=== PATIENT | female | born 1955 | race Caucasian/White ===

== ENCOUNTER 2021-12-08 08:20 | Inpatient (IN) | payer OTHER ==
[2021-12-08 08:49] LABS: Absolute Lymphocytes (CBC) 1.8 K/uL (0.7-4.9); Lymphocytes % 23.9 % (15.3-44.8); MCV 86.6 fL (80-100); MPV 8.6 fL (7.6-11.3); RBC Red Blood Cell Count 4.39 M/uL (3.86-4.86)
[2021-12-08] MEDS ORDERED: ONDANSETRON 4 MG/2 ML VIAL ONE ×2 (08:55→10:13)
[2021-12-08] MEDS ORDERED: FENTANYL CITR 100 MCG/2 ML ONE (08:55)
[2021-12-08] MEDS ORDERED: NA CHLORIDE 0.9% 1,000 ML ONE ×2 (08:55→11:25)
[2021-12-08 09:08] LABS: Albumin 3.6 g/dL (3.4-5.0); Bilirubin Total 0.6 mg/dL (0.2-1.0); Potassium 3.8 mmol/L (3.5-5.1); Protein, Total 7.3 g/dL (6.4-8.2)
--- NOTE | 2021-12-08 09:13 | RAD REPORT ---
EXAM DESCRIPTION: CT - Stone Protocol - 12/08/2021 9:03 am CLINICAL HISTORY: Flank pain. flankp ain COMPARISON: No comparisons TECHNIQUE: Axial images were obtained without oral or IV contrast. Lack of contrast limits solid org an and vascular assessment. The [id number] spans the entirety of the system partially obscuring uppermost abdomen and lung bases. Coronal reformatted images were obtained and reviewed. All CT scans are performed using dose optimization technique as appropriate and may include automated exposure control or mA/KV adjustment according to patient size. FINDINGS: Nonspecific interstitial thickening is seen in both lung bases. The liver contains a 13 mm low-density lesion in the anterior right lobe.No aggressive liver mass or biliary dilatation. The pancreas and adrenal glands are normal. No pathologic lymphadenopathy in the abdomen or pelvis. Multiple calculi are present in the right kidney largest in the right renal pelvis measuring 20 mm. N o right-sided hydronephrosis. There is mild to moderate left-sided hydronephrosis and hydroureter wit h a punctate stone seen distal left ureter measuring 1-2 mm. No bowel obstruction, free air, free fluid or abscess. Normal appendix noted. No significant bony abnormality. IMPRESSION: Punctate stone distal left ureter with [id number] left-sided hydronephrosis and hy droureter. Significant right-sided nephrolithiasis.
[2021-12-08] MEDS ORDERED: Magnesium Sulfate 2gm IVPB 2 G/50 ML BAG IV ONE (09:37)
[2021-12-08] MEDS ORDERED: KETOROLAC 30 MG/ML INJ ONE (09:37)
[2021-12-08] MEDS ORDERED: TAMSULOSIN 0.4 MG SR CAP ONE (09:37)
[2021-12-08] MEDS ORDERED: METOCLOPRAMIDE 10 MG/2mL INJ ONE (11:43)
[2021-12-08 11:55] LABS: Urine Blood 3+ (Negative); Urine Glucose Negative (Negative); Urine Protein 2+ (Negative); Urine Specific Gravity >=1.030 (1.005-1.030); Urine pH 5.5 (5.0-7.0)
[2021-12-08 13:01] LABS: Urine Bacteria <20 /HPF (<20); Urine Mucus 1+ /HPF (NONE SEEN)
--- NOTE | 2021-12-08 14:36 | RAD REPORT ---
EXAM DESCRIPTION: RAD - Chest Single View - 12/08/2021 2:10 pm CLINICAL HISTORY: DYSPNEA COMPARISON: No comparisons FINDINGS: Lines: None. Lungs: Diffuse coarsening of the pulmonary interstitium. Pleural: No significant pleural effusions or pneumothorax. Cardiac: Cardiomegaly. Bones: No acute fractures. Other: IMPRESSION: Findings most consistent with pulmonary edema. Pneumonia less likely but difficult to ex clude.
[2021-12-08 14:50] LABS: Arterial Blood Carboxyhemoglob 1.1 % (0-1.5); Blood Gas Oxyhemoglobin 85.2 % (94-97)
--- NOTE | 2021-12-08 15:16 | EDPHYS ---
Physician Documentation [facility] Name: Alix Acosta Age: 66 yrs Sex: Female : 1955 Arrival Date: 12/08/2021 Time: 08:23 Bed 18 Private MD: ED Physician David Mejia HPI: 12/08 09:09 This 66 yrs old Female presents to ER via Ambulatory with complaints of Flank Pain, kb Vomiting/Diarrhea. 09:09 The patient complains of pain in the left flank. The pain does not radiate. Onset: The kb symptoms/episode began/occurred this morning. Modifying factors: The symptoms are alleviated by nothing. the symptoms are aggravated by nothing. Associated signs and symptoms: Pertinent positives: diarrhea, nausea, vomiting, Pertinent negatives: fever. Severity of pain: At its worst the pain was severe in the emergency department the pain is unchanged. The patient has not experienced similar symptoms in the past. The patient has not recently seen a physician. Pt reports sudden onset of severe left flank pain that started this morning. reports n/v, with slight diarrhea as well. 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 - Social history:: Smoking status: Patient denies any tobacco usage or history of. ROS: 09:09 Constitutional: Negative for fever, chills, and weight loss. kb 09:09 Abdomen/GI: Positive for nausea, vomiting, and diarrhea, Negative for abdominal pain. 09:09 Back: Positive for flank pain, on the left. 09:09 All other systems are negative. Exam: 09:09 Constitutional: This is a well developed, well nourished patient who is awake, alert, kb and in no acute distress. Head/Face: Normocephalic, atraumatic. ENT: Moist Mucous membranes Cardiovascular: Regular rate and rhythm with a normal S1 and S2. No gallops, murmurs, or rubs. No pulse deficits. Respiratory: Respirations even and unlabored. No increased work of breathing. Talking in full sentences Abdomen/GI: Soft, non-tender. No distention Skin: Warm, dry with normal turgor. Normal color. MS/ Extremity: Pulses equal, no cyanosis. Neurovascular intact. Full, normal range of motion. Neuro: Awake and alert, GCS 15, oriented to person, place, time, and situation. Moves all extremities. Normal gait. Psych: Awake, alert, with orientation to person, place and time. Behavior, mood, and affect are within normal limits. 09:09 Back: CVA tenderness, that is moderate, that is severe, is noted on the left. Vital Signs: 08:31 BP 132 / 94; Pulse 97; Resp 16; Temp 98.8; Pulse Ox 95% on R/A; iw 09:39 BP 133 / 95; Pulse 90; Resp 18; Pulse Ox 96% ; montano 10:57 BP 117 / 64; Pulse 102; Resp 17; Pulse Ox 91% on 2 lpm NC; montano 13:09 BP 135 / 93; Pulse 110; Resp 18; Pulse Ox 95% on 4 lpm NC; montano 14:01 BP 124 / 78; Pulse 89; Resp 17; Pulse Ox 90% on 2 lpm NC; montano 14:59 BP 149 / 96; Pulse 127; Resp 19; Pulse Ox 91% on 4 lpm NC; montano 15:38 BP 119 / 100; Pulse 107; Resp 18; Pulse Ox 94% 10% ; montano 19:44 BP 113 / 57; Pulse 110; Resp 18; Pulse Ox 97% on 10 lpm NC; vc1 19:44 High flow NC vc1 MDM: 08:23 Patient medically screened. kb 09:09 Data reviewed: vital signs, nurses notes. Data interpreted: Pulse oximetry: on room air kb is 95 %. Interpretation: normal. 15:15 Counseling: I had a detailed discussion with the patient and/or guardian regarding: the kb historical points, exam findings, and any diagnostic results supporting the discharge/admit diagnosis, lab results, radiology results, the need for further work-up and treatment in the hospital. Physician consultation: Adam Saldaña was contacted at 15:15, regarding admission, to the telemetry unit. patient's condition, and will see patient in ED. 12/08 08:29 Order name: CBC with Diff; Complete Time: 09:01 kb 12/08 08:29 Order name: CMP; Complete Time: 09:11 kb 12/08 08:29 Order name: Lipase; Complete Time: 09:11 kb 12/08 11:55 Order name: Urine Dipstick-Ancillary; Complete Time: 12:16 EDMS 12/08 12:16 Order name: Urine Microscopic Only; Complete Time: 13:39 kb 12/08 13:04 Order name: Urine Culture EDMS 12/08 08:29 Order name: CT Stone Protocol; Complete Time: 09:14 kb 12/08 13:42 Order name: Chest Single View XRAY; Complete Time: 14:38 kb 12/08 14:29 Order name: ABG; Complete Time: 15:38 kb 12/08 14:50 Order name: BNP; Complete Time: 15:38 kb 12/08 14:50 Order name: COVID-19 SARS RT PCR (Document "Date of Onset" if Symptomatic); Complete kb Time: 16:05 12/08 08:29 Order name: IV Saline Lock; Complete Time: 08:39 kb 12/08 08:29 Order name: Labs collected and sent; Complete Time: 08:39 kb 12/08 14:29 Order name: EKG; Complete Time: 14:30 kb 12/08 14:29 Order name: EKG - Nurse/Tech; Complete Time: 14:36 kb Administered Medications: 08:47 CANCELLED (Duplicate Order): fentaNYL (PF) 25 mcg IVP once kb 08:54 Drug: NS 0.9% 1000 ml Route: IV; Rate: 1 bolus; Site: right antecubital; montano 08:54 Drug: Zofran (Ondansetron) 4 mg Route: IVP; Site: right antecubital; montano 08:54 Follow up: Response: No adverse reaction montano 08:54 Drug: fentaNYL (PF) 50 mcg Route: IVP; Site: right antecubital; montano 09:19 Follow up: Response: No adverse reaction montano 09:34 Drug: Flomax (tamsulosin) 0.4 mg Route: PO; montano 09:35 Follow up: Response: No adverse reaction montano 09:35 Drug: Ketorolac 10 mg Route: IVP; Site: right antecubital; montano 09:35 Follow up: Response: No adverse reaction montano 09:35 Drug: Magnesium Sulfate 1 grams Route: IVPB; Infused Over: 1 hrs; Site: right montano antecubital; 10:09 Drug: Zofran (Ondansetron) 4 mg Route: IVP; Site: right antecubital; montano 10:09 Follow up: Response: No adverse reaction montano 11:22 Drug: NS 0.9% 1000 ml Route: IV; Rate: 1000 ml; Site: right antecubital; montano 11:38 Drug: Reglan (metoCLOPramide) 10 mg Route: IVP; Site: right antecubital; montano 11:39 Follow up: Response: No adverse reaction montano 15:30 Drug: Lopressor (metoprolol) 5 mg Route: IVP; Site: right antecubital; montano 15:34 Follow up: Response: No adverse reaction montano 15:31 Drug: Lasix (furosemide) 20 mg Route: IVP; Site: right antecubital; montano 15:34 Follow up: Response: No adverse reaction montano Disposition: 08:47 PA/DIRECTOR OF ACQUISITION MARKETING's history reviewed, patient interviewed, and examined. HPI: 66-year-old female ms3 with past medical history of kidney stones presents for left flank pain that began at 6:30 AM. Patient states the pain is severe and located in her left flank. Patient denies alleviating or inciting factors. Patient denies nausea, vomiting, fevers, chills. My personal exam of patient reveals: Patient is alert, appears in pain, no apparent distress. Heart rate and rhythm are regular without murmurs rubs or gallops. Lungs clear to auscultation bilaterally. Abdomen nontender to palpation with bowel sounds present. Patient is without CVA tenderness. Skin is without erythema, rashes, diaphoresis. Disposition Summary: 12/08/21 15:16 Hospitalization Ordered Hospitalization Status: Observation Provider: Adam Saldaña Location: Telemetry/MedSurg (observation) Condition: Stable kb Problem: new kb Symptoms: are unchanged kb Bed/Room Type: Standard Room Assignment: 214(12/08/21 18:29) Diagnosis - Acute pulmonary edema kb - Hypoxia kb - Calculus of kidney with calculus of ureter kb - Unspecified atrial fibrillation kb Forms: - Medication Reconciliation Form kb - SBAR form kb Signatures: Dispatcher [employer] Rosetta Aguilar FNP-C FNP-Pilar Curtis RN Patti Goldberg RN RN iw Sims, Marcus, DO ms3 Gloria-StagerRadha RN RN ha Calcote, Vanessa RN RN vc1 Corrections: (The following items were deleted from the chart) 08:47 08:29 fentaNYL (PF) 25 mcg IVP once ordered. kb kb 18:29 15:16 kb dw
--- NOTE | 2021-12-08 15:16 | ER ---
Nurse's Notes [facility] Name: Alix Acosta Age: 66 yrs Sex: Female : 1955 Arrival Date: 12/08/2021 Time: 08:23 Bed 18 Private MD: Diagnosis: Acute pulmonary edema;Hypoxia;Calculus of kidney with calculus of ureter;Unspecified atrial fibrillation Presentation: 12/08 08:31 Chief complaint: Patient states: left flank pain since this morning , + n/v/d. iw Coronavirus screen: Client presents with at least one sign or symptom that may indicate coronavirus-19. Ebola Screen: Patient negative for fever greater than or equal to 101.5 degrees Fahrenheit, and additional compatible Ebola Virus Disease symptoms Patient denies exposure to infectious person. Patient denies travel to an Ebola-affected area in the 21 days before illness onset. No symptoms or risks identified at this time. Initial Sepsis Screen: Does the patient meet any 2 criteria? No. Patient's initial sepsis screen is negative. Does the patient have a suspected source of infection? No. Patient's initial sepsis screen is negative. Risk Assessment: Do you want to hurt yourself or someone else? Patient reports no desire to harm self or others. Onset of symptoms was December 08, 2021. 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 - Social history:: Smoking status: Patient denies any tobacco usage or history of. Screenin:44 Abuse screen: Denies threats or abuse. Denies injuries from another. Nutritional montano screening: No deficits noted. Tuberculosis screening: No symptoms or risk factors identified. Fall Risk None identified. Assessment: 08:44 General: Appears uncomfortable, Behavior is calm, cooperative. Pain: Complains of pain montano in left mid back. GI: Abdomen is non-distended, Reports nausea, vomiting. : Reports pain flank(s), Pain is 7 out of 10 on a pain scale. 19:44 Reassessment: Previous shift attempted to call report at shift change, instructed to vc1 call back after shift change. This nurse attempted to call report instructed receiving nurse is still in report. Will call back in 10 minutes. 20:11 Reassessment: Callled report called to JERONIMO Cordero. vc1 Vital Signs: 08:31 BP 132 / 94; Pulse 97; Resp 16; Temp 98.8; Pulse Ox 95% on R/A; iw 09:39 BP 133 / 95; Pulse 90; Resp 18; Pulse Ox 96% ; montano 10:57 BP 117 / 64; Pulse 102; Resp 17; Pulse Ox 91% on 2 lpm NC; montano 13:09 BP 135 / 93; Pulse 110; Resp 18; Pulse Ox 95% on 4 lpm NC; montano 14:01 BP 124 / 78; Pulse 89; Resp 17; Pulse Ox 90% on 2 lpm NC; montano 14:59 BP 149 / 96; Pulse 127; Resp 19; Pulse Ox 91% on 4 lpm NC; montano 15:38 BP 119 / 100; Pulse 107; Resp 18; Pulse Ox 94% 10% ; montano 19:44 BP 113 / 57; Pulse 110; Resp 18; Pulse Ox 97% on 10 lpm NC; vc1 19:44 High flow NC vc1 ED Course: 08:23 Patient arrived in ED. mr 08:23 MauricioRosetta FNP-C is [facility]. kb 08:23 David Mejia DO is Attending Physician. kb 08:32 Triage completed. iw 08:33 Arm band placed on. iw 08:34 Bed in low position. Call light in reach. tp1 08:34 Inserted saline lock: 20 gauge in right antecubital area, using aseptic technique. tp1 Blood collected. 08:44 Radha Samson, JERONIMO is Primary Nurse. montano 08:44 No provider procedures requiring assistance completed. Inserted saline lock:. montano 09:04 CT Stone Protocol In Process Unspecified. EDMS 14:12 Chest Single View XRAY In Process Unspecified. EDMS 15:04 BNP Sent. montano 15:04 COVID-19 SARS RT PCR (Document "Date of Onset" if Symptomatic) Sent. montano 15:15 Adam Saldaña is Hospitalizing Provider. kb 20:18 Patient admitted, IV remains in place. vc1 Administered Medications: 08:47 CANCELLED (Duplicate Order): fentaNYL (PF) 25 mcg IVP once kb 08:54 Drug: NS 0.9% 1000 ml Route: IV; Rate: 1 bolus; Site: right antecubital; montano 08:54 Drug: Zofran (Ondansetron) 4 mg Route: IVP; Site: right antecubital; montano 08:54 Follow up: Response: No adverse reaction montano 08:54 Drug: fentaNYL (PF) 50 mcg Route: IVP; Site: right antecubital; montano 09:19 Follow up: Response: No adverse reaction montano 09:34 Drug: Flomax (tamsulosin) 0.4 mg Route: PO; montano 09:35 Follow up: Response: No adverse reaction montano 09:35 Drug: Ketorolac 10 mg Route: IVP; Site: right antecubital; montano 09:35 Follow up: Response: No adverse reaction montano 09:35 Drug: Magnesium Sulfate 1 grams Route: IVPB; Infused Over: 1 hrs; Site: right montano antecubital; 10:09 Drug: Zofran (Ondansetron) 4 mg Route: IVP; Site: right antecubital; montano 10:09 Follow up: Response: No adverse reaction montano 11:22 Drug: NS 0.9% 1000 ml Route: IV; Rate: 1000 ml; Site: right antecubital; montano 11:38 Drug: Reglan (metoCLOPramide) 10 mg Route: IVP; Site: right antecubital; montano 11:39 Follow up: Response: No adverse reaction montano 15:30 Drug: Lopressor (metoprolol) 5 mg Route: IVP; Site: right antecubital; montano 15:34 Follow up: Response: No adverse reaction montano 15:31 Drug: Lasix (furosemide) 20 mg Route: IVP; Site: right antecubital; montano 15:34 Follow up: Response: No adverse reaction montano Medication: 08:44 VIS not applicable for this client. montano Outcome: 15:16 Decision to Hospitalize by Provider. kb 20:18 Admitted to Med/surg accompanied by tech, via wheelchair, room 214. vc1 20:18 Condition: good 20:18 Instructed on the need for admit. 20:34 Patient left the ED. vc1 Signatures: Dispatcher [employer] EDRandolph Moratayaistin, PETROLEUM ENGINEERING TEACHER-C PETROLEUM ENGINEERING TEACHER-Ckb Ivory Steph mr Patti Boudreaux, JERONIMO DECKER iw Karie Goode tp1 Radha Samson RN RN montano Diana Raymundo RN RN vc1 Corrections: (The following items were deleted from the chart) 15:02 14:59 BP 129 / 61; Pulse 88bpm; Resp 17bpm; Pulse Ox 94% 4 lpm Nasal Cannula; montano montano 20:17 20:11 Reassessment: Callled report vc1 vc1
[2021-12-08] MEDS ORDERED: FUROSEMIDE 20 MG/ 2ML VIAL ONE (15:36)
[2021-12-08] MEDS ORDERED: METOPROLOL TARTRATE 5 MG/5 ML INJ IV ONE (15:36)
--- NOTE | 2021-12-08 17:22 | P.HP ---
Certification for Inpatient Patient admitted to: Observation With expected LOS: <2 Midnights Practitioner: I am a practitioner with admitting privileges, knowledge of patient current condition, hospital course, and medical plan of care. Services: Services provided to patient in accordance with Admission requirements found in Title 42 Section 412.3 of the Code of Federal Regulations Patient History Date of Service: 12/08/21 Reason for admission: Shortness of breath History of Present Illness: 66-year-old man with a history of chronic atrial fibrillation presented to the emergency department with a complaint of left flank pain. She has a history of nephrolithiasis and there was suspected left flank pain was due to kidney stone. Symptoms associated with nausea and vomiting no fever recorded, no leukocytosis but patient tachycardic. She does not meet criteria for sepsis. UA has mild evidence of UTI. CT abdomen pelvis demonstrated 1 to 2 mm left ureteral stone with mild to moderate left hydronephrosis, 2 cm right renal pelvis stone. Patient was given IV fluid after which she developed pulmonary edema as evidenced on her chest x-ray. She was requiring up to 10 L of oxygen by nasal cannula-bubbler. Patient heart rate was in the 110s to 120s. She did not take her digoxin for atrial fibrillation this morning due to nausea and vomiting. ED provider gave a dose of IV Lasix and consulted hospitalist for admission. Patient is admitted for further management of acute CHF and ureteral stone. - Past Medical/Surgical History -: Chronic atrial fibrillation -: Congenital brain deformity -: Nephrolithiasis -: Craniotomy with plastic surgery - Family History Mother -: Heart disease - Social History Smoking Status: Never smoker Alcohol use: No Place of Residence: Home Review of Systems Other: Patient denies any fever or chills, denies any chest pain. She denies any abdominal pain or diarrhea. Except as documented, all other systems reviewed and negative. Physical Examination - Physical Exam General: Alert, In no apparent distress, Oriented x3 HEENT: Mucous membr. moist/pink, Sclerae nonicteric Neck: Supple, JVD not distended Respiratory: Normal air movement, Crackles/rales (Mild bibasilar crackles) Cardiovascular: No edema, Normal S1 S2, Irregular heart rate/rhythm Capillary refill: <2 Seconds Gastrointestinal: Normal bowel sounds, Soft and benign, Non-distended, No tenderness Musculoskeletal: No swelling, No tenderness Integumentary: No rashes, No erythema, No cyanosis Neurological: Normal speech, Normal strength at 5/5 x4 extr, Cranial nerves 3-12 intact Lymphatics: No axilla or inguinal lymphadenopathy - Studies Laboratory Data (last 24 hrs) 12/08/21 08:33: Sodium 141, Potassium 3.8, BUN 18, Creatinine 0.97, Glucose 109 H, Total Bilirubin 0.6, AST 23, ALT 25, Alkaline Phosphatase 63, Lipase 175 12/08/21 08:33: WBC 7.4, Hgb 12.9, Hct 38.0, Plt Count 200 Assessment and Plan - Problems (Diagnosis) (1) Rapid atrial fibrillation Current Visit: Yes Status: Acute (2) Acute CHF Current Visit: Yes Status: Acute (3) Pulmonary edema Current Visit: Yes Status: Acute (4) Ureteric calculus Current Visit: Yes Status: Acute (5) Nephrolithiasis Current Visit: Yes Status: Acute (6) Hydroureter Current Visit: Yes Status: Acute (7) Acute cystitis Current Visit: Yes Status: Acute - Plan Admit patient to the medical floor. We will give IV Lasix for pulmonary edema Resume home medications-digoxin and metoprolol for rapid A. fib. Monitor intake and output Obtain echocardiogram to assess LV function IV Rocephin for UTI Follow urine culture Renal ultrasound to follow hydronephrosis. Patient may be able to pass the ureteric stone as size is less than 5 mm. Urology consult pending response to initial treatment. - Advance Directives Does patient have a Living Will: No Does patient have a Durable POA for Healthcare: No
[2021-12-08] MEDS ORDERED: ALBUTEROL 2.5 MG/3 ML NEB SOL NEB PRN (20:14)
[2021-12-08] MEDS ORDERED: ACETAMINOPHEN 500 MG TAB PO PRN (20:14)
[2021-12-08 20:53] VITALS: BMI 27.0
[2021-12-08] MEDS: TAMSULOSIN 0.4 MG SR CAP PO SCH (21:26)
[2021-12-09 04:02] LABS: Absolute Lymphocytes (CBC) 1.2 K/uL (0.7-4.9); Hematocrit 35.8 % (36.0-45.0); Lymphocytes % 11.1 % (15.3-44.8); MCV 87.1 fL (80-100); MPV 8.6 fL (7.6-11.3); RBC Red Blood Cell Count 4.11 M/uL (3.86-4.86)
[2021-12-09 04:10] LABS: Magnesium 2.1 mg/dL (1.8-2.4); Potassium 3.6 mmol/L (3.5-5.1)
[2021-12-09] MEDS ORDERED: ASPIRIN EC 81 MG TAB PO SCH (09:00)
[2021-12-09] MEDS ORDERED: POTASSIUM CL SA 10 MEQ TAB PO ONE (09:00)
[2021-12-09] MEDS: FUROSEMIDE 40 MG/4 ML VIAL IV SCH ×2 (10:30→17:36)
[2021-12-09] MEDS: ENOXAPARIN 40 MG/0.4 ML SQ SCH (10:30)
[2021-12-09] MEDS: CEFTRIAXONE 1,000 MG in NA CHLORIDE 0.9% 50 ML IVPB SCH (10:31)
[2021-12-09] MEDS ORDERED: ALBUTEROL 2.5 MG/3 ML NEB SOL NEB PRN (14:00)
[2021-12-09] MEDS: ONDANSETRON 4 MG/2 ML VIAL IV PRN (15:32)
[2021-12-09] MEDS ORDERED: DIGOXIN 0.125 MG TABLET PO ONE (16:00)
[2021-12-09] MEDS ORDERED: METOPROLOL XL 50 MG TAB PO ONE (16:00)
[2021-12-09] MEDS ORDERED: ONDANSETRON 4 MG/2 ML VIAL IV ONE (18:00)
[2021-12-09] MEDS ORDERED: MORPHINE 2 MG/ML SYR IV ONE (18:00)
--- NOTE | 2021-12-09 18:48 | P.PN ---
Subjective Date of Service: 12/09/21 Chief Complaint: Shortness of breath Patient still requiring 10 L of oxygen by nasal cannula. She states that shortness of breath is better. She denies any flank pain. She is complaining of nausea. She also reported an episode of chest pain this afternoon. Physical Examination - Vital Signs Temperature: 97.0 F Blood Pressure: 137/63 Pulse: 110 Respirations: 16 Pulse Ox (%): 96 - Physical Exam General: Alert, In no apparent distress, Oriented x3 HEENT: Mucous membr. moist/pink Neck: JVD not distended Respiratory: Clear to auscultation bilaterally, Crackles/rales (Bibasilar crackles) Cardiovascular: No edema, Normal S1 S2, No murmurs, Irregular heart rate/rhythm Gastrointestinal: Normal bowel sounds, Soft and benign, Non-distended, No tenderness Musculoskeletal: No swelling, No tenderness Integumentary: No rashes, No cyanosis Neurological: Normal strength at 5/5 x4 extr - Studies Laboratory Data (last 24 hrs) 12/09/21 03:37: Sodium 140, Potassium 3.6, BUN 23 H, Creatinine 1.55 H, Glucose 106, Phosphorus 3.0, Magnesium 2.1 12/09/21 03:37: WBC 11.0 H D, Hgb 12.1, Hct 35.8 L, Plt Count 155 D Assessment And Plan - Current Problems (Diagnosis) (1) Rapid atrial fibrillation Current Visit: Yes Status: Acute (2) Acute CHF Current Visit: Yes Status: Acute (3) Pulmonary edema Current Visit: Yes Status: Acute (4) Ureteric calculus Current Visit: Yes Status: Acute (5) Nephrolithiasis Current Visit: Yes Status: Acute (6) Hydroureter Current Visit: Yes Status: Acute (7) Acute cystitis Current Visit: Yes Status: Acute - Plan Continue IV Lasix for pulmonary edema Continue digoxin and metoprolol for atrial fibrillation Troponin is negative Monitor intake and output Echocardiogram done and the result is pending. Urine culture yielded mixed growth. Continue IV Rocephin Her flank pain has resolved. Continue Flomax for the ureteric stone. Repeat imaging to assess the patient has passed a stone. Patient was complaining of chest pain but EKG unremarkable and troponin negative. Chest pain could be related to rapid A. fib. Patient is not anticoagulated for A. fib. Pain management and antiemetics as needed.
[2021-12-09] MEDS: METOPROLOL XL 50 MG TAB PO SCH (21:53)
[2021-12-09] MEDS: TAMSULOSIN 0.4 MG SR CAP PO SCH (21:53)
[2021-12-10 04:01] LABS: Absolute Lymphocytes (CBC) 1.5 K/uL (0.7-4.9); Hematocrit 35.6 % (36.0-45.0); Lymphocytes % 10.8 % (15.3-44.8); MCV 86.3 fL (80-100); MPV 8.8 fL (7.6-11.3); RBC Red Blood Cell Count 4.13 M/uL (3.86-4.86)
[2021-12-10 04:27] LABS: Potassium 3.3 mmol/L (3.5-5.1)
[2021-12-10] MEDS: ONDANSETRON 4 MG/2 ML VIAL IV PRN (07:50)
--- NOTE | 2021-12-10 08:58 | EKG ---
Test Date: 2021-12-08 Test Time: 14:30:30 Glass Cut Off Supervisor: CARO MEASUREMENT RESULTS: Intervals: Rate: 129 IN: QRSD: 92 QT: 388 QTc: 568 [place]: P: IN: QRS: 17 T: 250 INTERPRETIVE STATEMENTS: Atrial fibrillation with rapid ventricular response with premature ventricular or aberrantly conducted complexes ST & T wave abnormality, consider inferior ischemia Abnormal ECG No previous ECG available for comparison Electronically Signed On 12-10-21 08:55:34 CDT by Alex Ireland
[2021-12-10] MEDS ORDERED: POTASSIUM 25 MEQ EFFERV TAB PO ONE (09:00)
[2021-12-10] MEDS ORDERED: ASPIRIN EC 81 MG TAB PO SCH (09:00)
[2021-12-10] MEDS ORDERED: DIGOXIN 0.125 MG TABLET PO SCH (09:00)
[2021-12-10] MEDS ORDERED: SUCRALFATE 1GM/10ML UCUP PO ONE (09:30)
[2021-12-10] MEDS: ENOXAPARIN 40 MG/0.4 ML SQ SCH (09:49)
[2021-12-10] MEDS: FUROSEMIDE 40 MG/4 ML VIAL IV SCH ×2 (09:50→17:11)
[2021-12-10] MEDS: CEFTRIAXONE 1,000 MG in NA CHLORIDE 0.9% 50 ML IVPB SCH (09:51)
[2021-12-10] MEDS: METOPROLOL XL 50 MG TAB PO SCH ×2 (09:53→20:18)
[2021-12-10] MEDS ORDERED: PROMETHAZINE INJ 25 MG/ML AMP IV PRN (12:11)
--- NOTE | 2021-12-10 13:26 | RAD REPORT ---
EXAM DESCRIPTION: CT - Abdomen Pelvis Wo Contrast - 12/10/2021 12:41 pm CLINICAL HISTORY: Abdominal pain. vomiting COMPARISON: Stone Protocol dated 12/08/2021 TECHNIQUE: CT imaging of the abdomen and pelvis was performed without contrast. Solid organ, bowel a nd vascular assessment is limited due to lack of IV and oral contrast. All CT scans are performed using dose optimization technique as appropriate and may include automated exposure control or mA/KV adjustment according to patient size. FINDINGS: Linear opacities in both posterior lung bases noted. Small cyst is seen anterior right lobe liver measuring 13 mm. Small hiatal hernia.The spleen, pancrea s and adrenal glands are normal. Several stones are present in the right kidney. 18 mm stone is present inferior calyx right kidney. T here is moderate left-sided hydronephrosis and hydroureter which is mildly progressive since prior st udy. Tiny punctate calculus in the region of the distal left ureter is again seen, unchanged. No bowel obstruction, free air, free fluid or abscess. The osseous structures are within normal limits. IMPRESSION: Mild worsening left-sided hydronephrosis and hydroureter since prior study. Tiny punctat e calculus distal left ureter appears unchanged in position. Right nephrolithiasis. A limited non-contrast examination was performed as detailed.
--- NOTE | 2021-12-10 14:54 | P.PN ---
Subjective Date of Service: 12/10/21 Chief Complaint: Shortness of breath Patient with nausea and vomiting. She reports more flank pain today. WBC count is trending up. She has also developed ALEX. No recorded fever Physical Examination - Vital Signs Temperature: 97.8 F Blood Pressure: 125/82 Pulse: 105 Respirations: 22 Pulse Ox (%): 97 - Physical Exam General: Alert, Mild distress (Due to nausea) HEENT: Mucous membr. moist/pink Neck: JVD not distended Respiratory: Crackles/rales (Mild bibasilar rales) Cardiovascular: No edema, Normal S1 S2, Irregular heart rate/rhythm Gastrointestinal: Normal bowel sounds, Soft and benign, Non-distended, No tenderness Musculoskeletal: No swelling, No tenderness Integumentary: No rashes, No cyanosis Neurological: Normal strength at 5/5 x4 extr - Studies Microbiology Data (last 24 hrs): 12/08/21 12:15 Clean Catch Urine [place] Count - Final BETWEEN 10,000 & 100,000 CFU/ML 12/08/21 12:15 Clean Catch Urine - Final MIXED ADRIANA. Assessment And Plan - Current Problems (Diagnosis) (1) Rapid atrial fibrillation Current Visit: Yes Status: Acute (2) Acute CHF Current Visit: Yes Status: Acute (3) Pulmonary edema Current Visit: Yes Status: Acute (4) Ureteric calculus Current Visit: Yes Status: Acute (5) Nephrolithiasis Current Visit: Yes Status: Acute (6) Hydroureter Current Visit: Yes Status: Acute (7) Acute cystitis Current Visit: Yes Status: Acute - Plan Hold Lasix due to worsening renal function. Oxygen weaned down to 4 L by nasal cannula. Continue digoxin and metoprolol for atrial fibrillation Troponin is negative Monitor intake and output Echocardiogram done and the result is pending. Urine culture yielded mixed growth. Patient is clinically worse today with more flank pain, worsening leukocytosis, intractable nausea and vomiting, and worsening renal function Repeat CT abdomen shows worsening hydronephrosis and hydroureter Continue Flomax for the ureteric stone. Patient will need urology input. Urology consulted. We will transfer to tertiary hospital if no urology available this weekend. Antibiotics changed to IV meropenem. Patient was complaining of chest pain but EKG unremarkable and troponin negative. Chest pain could be related to rapid A. fib. Pain management and antiemetics as needed.
[2021-12-10 16:43] VITALS: BP 112/66; TEMP 98.7
--- NOTE | 2021-12-10 18:47 | P.DS ---
Admission Date: 12/09/21 Discharge Date: 12/10/21 Reason for Admission: Shortness of breath - Problems (1) Rapid atrial fibrillation Current Visit: Yes Status: Acute (2) Acute CHF Current Visit: Yes Status: Acute (3) Pulmonary edema Current Visit: Yes Status: Acute (4) Ureteric calculus Current Visit: Yes Status: Acute (5) Nephrolithiasis Current Visit: Yes Status: Acute (6) Hydroureter Current Visit: Yes Status: Acute (7) Acute cystitis Current Visit: Yes Status: Acute Brief History of Present Illness: 66-year-old man with a history of chronic atrial fibrillation presented to the emergency department with a complaint of left flank pain. She has a history of nephrolithiasis and there was suspected left flank pain was due to kidney stone. Symptoms associated with nausea and vomiting no fever recorded, no leukocytosis but patient tachycardic. She does not meet criteria for sepsis. UA had mild evidence of UTI. CT abdomen pelvis demonstrated 1 to 2 mm left ureteral stone with mild to moderate left hydronephrosis, 2 cm right renal pelvis stone. Patient was given IV fluid after which she developed pulmonary edema as evidenced on her chest x-ray. She was requiring up to 10 L of oxygen by nasal cannula-bubbler. Patient heart rate was in the 110s to 120s. She did not take her digoxin for atrial fibrillation this morning due to nausea and vomiting. ED provider gave a dose of IV Lasix and consulted hospitalist for admission. Patient was admitted for further management of acute CHF and ureteral stone. Hospital Course: Patient admitted to the medical floor and started on IV Lasix for pulmonary edema. Also started on IV antibiotics for UTI. Other supportive measures including IV opioids for pain, Flomax to aid her to pass a small stone in the left ureter. Her home medication for atrial fibrillation we will continued Patient continues to be symptomatic with flank pain and intractable nausea and vomiting Oxygen weaned down to 4 L by nasal cannula. She complained of chest pain at the point. Troponin was negative and EKG showed no ischemic changes Echocardiogram done and the result is pending. Urine culture yielded mixed growth. Patient is clinically worse today with more flank pain, worsening leukocytosis, intractable nausea and vomiting, and worsening renal function Repeat CT abdomen shows worsening hydronephrosis and hydroureter. Urology Dr. Flowers is not available this weekend. I called and spoke to urologist Dr. Tijerina who recommended transfer to [facility] to be seen by urology for possible ureteral stent. Antibiotics changed to IV meropenem. Patient accepted for transfer. She is clinically stable for transfer. Vital Signs/Physical Exam: Temp Pulse Resp BP Pulse Ox 98.7 F 105 H 20 112/66 95 12/10/21 16:00 12/10/21 17:11 12/10/21 16:00 12/10/21 17:11 12/10/21 16:00 General: Alert, In no apparent distress, Oriented x3 HEENT: Mucous membr. moist/pink Neck: JVD not distended Respiratory: Normal air movement, Crackles/rales (Mild bibasilar crackles) Cardiovascular: No edema, Normal S1 S2, Irregular heart rate/rhythm Gastrointestinal: Normal bowel sounds, Soft and benign, Non-distended, No tenderness Musculoskeletal: No swelling, No tenderness Integumentary: No rashes, No erythema, No cyanosis Neurological: Normal strength at 5/5 x4 extr Laboratory Data at Discharge: WBC 13.5 K/uL (4.3-10.9) H D 12/10/21 03:11 Hgb 12.3 g/dL (12.0-15.0) 12/10/21 03:11 Hct 35.6 % (36.0-45.0) L 12/10/21 03:11 Plt Count 152 K/uL (152-406) 12/10/21 03:11 Sodium 136 mmol/L (136-145) 12/10/21 03:11 Potassium 3.3 mmol/L (3.5-5.1) L 12/10/21 03:11 BUN 23 mg/dL (7-18) H 12/10/21 03:11 Creatinine 1.81 mg/dL (0.55-1.3) H 12/10/21 03:11 Glucose 97 mg/dL (74-106) 12/10/21 03:11 Phosphorus 3.0 mg/dL (2.5-4.9) 12/09/21 03:37 Magnesium 2.1 mg/dL (1.8-2.4) 12/09/21 03:37 Total Bilirubin 0.6 mg/dL (0.2-1.0) 12/08/21 08:33 AST 23 U/L (15-37) 12/08/21 08:33 ALT 25 U/L (12-78) 12/08/21 08:33 Alkaline Phosphatase 63 U/L (45-117) 12/08/21 08:33 Lipase 175 U/L (73-393) 12/08/21 08:33 Home Medications: Aspirin [Aspirin EC 81 MG] 81 mg PO DAILY 12/09/21 Digoxin [Lanoxin] 0.125 mg PO DAILY 12/09/21 Metoprolol Succinate [Toprol Xl] 50 mg PO BID 12/09/21 Time spent managing pt's care (in minutes): 38
[2021-12-10] MEDS: TAMSULOSIN 0.4 MG SR CAP PO SCH (20:25)
[2021-12-10 20:33] VITALS: O2SAT 97
[2021-12-10] MEDS ORDERED: Meropenem 1,000 MG in NA CHLORIDE 0.9% 100 ML IV SCH (21:00)
--- NOTE | 2021-12-12 08:05 | ECHO ---
HEIGHT: 5 ft 8 in WEIGHT: 178 lb 0 oz DATE OF STUDY: 12/09/[address]: glenys pope 2-DIMENSIONAL: YES M.MODE: YES DOPPLER: YES COLOR FLOW: YES TDS: PORTABLE: YES DEFINITY: BUBBLE STUDY: DIAGNOSIS: ACUTE CONGESTIVE HEART FAILURE CARDIAC HISTORY: CATHERIZATION: SURGERY: PROSTHETIC VALVE: PACEMAKER: MEASUREMENTS (cm) DIASTOLIC (NORMALS) SYSTOLIC (NORMALS) IVSd 0.8 (0.6-1.2) LA Diam 4.8 (1.9-4.0) LVEF 54% LVIDd 5.5 (3.5-5.7) LVIDs 3.9 (2.0-3.5) %FS 28% LVPWd 0.9 (0.6-1.2) Ao Diam 2.7 (2.0-3.7) 2 DIMENSIONAL ASSESSMENT: RIGHT ATRIUM: NORMAL LEFT ATRIUM: DILATED RIGHT VENTRICLE: NORMAL LEFT VENTRICLE: NORMAL TRICUSPID VALVE: NORMAL MITRAL VALVE: NORMAL PULMONIC VALVE: NORMAL AORTIC VALVE: NORMAL PERICARDIAL EFFUSION: NONE AORTIC ROOT: NORMAL LEFT VENTRICULAR WALL MOTION: DOPPLER/COLOR FLOW: COMMENTS: MILD MITRAL ANNULAR CALCIFICATION. NORMAL EJECTION FRACTION. MODERATE PULMONARY HYPERTENSION. DIASTOLIC DYSFUNCTION. LEFT ATRIAL ENLARGEMENT. TECHNOLOGIST: RITA MAHONEY
--- NOTE | 2021-12-12 11:57 | EKG ---
Test Date: 2021-12-09 Test Time: 14:57:55 Fire Truck Driver: MESHA Navarrete MEASUREMENT RESULTS: Intervals: Rate: 120 IN: QRSD: 94 QT: 278 QTc: 392 [place]: P: IN: QRS: 42 T: -77 INTERPRETIVE STATEMENTS: Atrial fibrillation with rapid ventricular response Incomplete right bundle branch block Nonspecific ST and T wave abnormality, probably digitalis effect Abnormal ECG Compared to ECG 12/08/2021 14:30:30 Incomplete right bundle-branch block now present Ventricular premature complex(es) no longer present Possible ischemia no longer present ST (T wave) deviation still present Electronically Signed On 12-12-21 11:51:05 CDT by Alex Ireland
== END 2021-12-10 21:19 | disposition short-term general hospital (02) | DRG 690 ==
LOC: ER 08:20 → ERHOLD 17:03 → 2ND 19:58 → OBSVTOIN 12-09 08:26
PROVIDERS: ADMIT Internal Medicine; ATTEND Internal Medicine
DX: N13.6 Pyonephrosis (principal); I48.20 Chronic atrial fibrillation, unspecified; Q04.9 Congenital malformation of brain, unspecified; I50.9 Heart failure, unspecified; R11.2 Nausea with vomiting, unspecified; Z20.822 Contact with and (suspected) exposure to COVID-19
CPT/HCPCS: 36415; 71045; 74176; 76377; 80048; 80053; 80162; 81003; 81015; 82805; 83690; 83735; 83880; 84100; 84484; 85025; 87086; 87088; 93005; 93306; 94760; 96374; 96375; 99285; G0378; J1650; J1940; J2185; J2270; J2405; J2765; J3010; J3475; J7030; U0003

== ENCOUNTER 2023-06-12 11:16 | Inpatient (IN) | payer MEDICARE, OTHER ==
--- NOTE | 2023-06-12 12:10 | RAD REPORT ---
EXAM DESCRIPTION: RAD - Chest Single View - 06/12/2023 12:02 pm CLINICAL HISTORY: COUGH COMPARISON: Chest Single View dated 12/08/2021 FINDINGS: Lines: None. Lungs: Diffuse prominence of the interstitium. Pleural: No significant pleural effusions or pneumothorax. Cardiac: Cardiomegaly. Annuloplasty changes. Mediastinum: Within normal limits. Bones: No acute fractures. Other: None IMPRESSION: Diffuse prominence of pulmonary interstitium likely reflecting pulmonary edema. Multifoc al pneumonia less likely.
[2023-06-12 12:38] LABS: Bilirubin Direct 0.2 mg/dL (0-0.2); Bilirubin Indirect, Calculated 0.3 mg/dL (0.2-0.8); Bilirubin Total 0.5 mg/dL (0.2-1.0); Potassium 3.6 mEq/L (3.5-5.1); Protein, Total 7.3 g/dL (6.4-8.2); Troponin High Sensitivity 12.6 pg/mL (<58.9)
[2023-06-12 12:47] LABS: SARS-CoV-2 Antigen Rapid Res Negative (Negative)
[2023-06-12 13:04] LABS: Hematocrit 31.7 % (36.0-45.0); MCV 86.1 fL (80-100); MPV 8.5 fL (7.6-11.3); Platelets 142 thou/uL (152-406); RBC Red Blood Cell Count 3.67 M/uL (3.86-4.86)
--- NOTE | 2023-06-12 13:29 | ER ---
Nurse's Notes [facility] Name: Alix Acosta Age: 67 yrs Sex: Female : 1955 Arrival Date: 06/12/2023 Time: 11:16 Bed 16 Private MD: Diagnosis: Pulmonary edema Presentation: 06/12 11:31 Chief complaint: Patient states: she has had a cough for approx one week, and has been ap3 congested for the same amount of time. Coronavirus screen: Client presents with at least one sign or symptom that may indicate coronavirus-19. Ebola Screen: No symptoms or risks identified at this time. Initial Sepsis Screen: Does the patient meet any 2 criteria? HR > 90 bpm. Does the patient have a suspected source of infection? No. Patient's initial sepsis screen is negative. Risk Assessment: Do you want to hurt yourself or someone else? Patient reports no desire to harm self or others. Onset of symptoms was June 05, 2023. 11:31 Method Of Arrival: Ambulatory ap3 11:31 Acuity: DONN 3 ap3 Triage Assessment: 11:34 General: Appears in no apparent distress. Behavior is calm, cooperative, appropriate ap3 for age. Pain: Denies pain. EENT: Reports nasal congestion. Neuro: Level of Consciousness is awake, alert, obeys commands, Oriented to person, place, time, situation. Cardiovascular: Patient's skin is warm and dry. Respiratory: Reports cough that is Airway is patent Respiratory effort is even, unlabored, Respiratory pattern is regular, symmetrical. 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 - Social history:: Smoking status: Patient denies any tobacco usage or history of. - Family history:: not pertinent. Screenin:35 [facility] ED Fall Risk Assessment (Adult) History of falling in the last 3 months, ap3 including since admission No falls in past 3 months (0 pts). Abuse screen: Denies threats or abuse. Nutritional screening: No deficits noted. Tuberculosis screening: No symptoms or risk factors identified. Assessment: 13:58 Reassessment: Patient appears in no apparent distress at this time. Patient and/or db family updated on plan of care and expected duration. Pain level reassessed. Patient is alert, oriented x 3, equal unlabored respirations, skin warm/dry/pink. Patient states feeling better. General: Appears in no apparent distress. comfortable, Behavior is calm, cooperative. Neuro: Level of Consciousness is awake, alert, obeys commands, Oriented to person, place, time, situation. Respiratory: Airway is patent Respiratory effort is even, unlabored, Respiratory pattern is regular, symmetrical. 14:35 Reassessment: CALLED THE FLOOR TO GIVE REPORT. ROOM IS PENDING ASSIGNMENT TO A NURSE db PER CATECHIST. 15:04 Reassessment: CALLED O GIVE REPORT. NURSE IS NOT AVAILABLE. FLOOR WILL CALL ME BACK. db 15:14 Reassessment: Patient appears in no apparent distress at this time. Patient and/or db family updated on plan of care and expected duration. Pain level reassessed. PATIENT AMBULATORY TO RESTROOM. 15:24 Reassessment: REPORT GIVEN TO JERONIMO JACK. db 15:30 Reassessment: Patient appears in no apparent distress at this time. Patient and/or db family updated on plan of care and expected duration. Pain level reassessed. Patient is alert, oriented x 3, equal unlabored respirations, skin warm/dry/pink. Vital Signs: 11:31 BP 102 / 65; Pulse 113; Resp 19; Temp 98.7; Pulse Ox 97% ; Weight 65.77 kg; Height 5 ap3 ft. 8 in. ; 13:30 BP 104 / 92; Pulse 110; Resp 16; Pulse Ox 95% on R/A; db 14:30 BP 100 / 77; Pulse 110; Resp 16; Pulse Ox 100% on R/A; db 15:00 BP 107 / 76; Pulse 110; Resp 18; Temp 98.7; Pulse Ox 95% on R/A; db 11:31 Body Mass Index 22.05 (65.77 kg, 172.72 cm) ap3 ED Course: 11:21 Patient arrived in ED. mg5 11:22 Serjio Jones MD is Attending Physician. rt 11:28 Oviedo, Marley, RN is Primary Nurse. db 11:32 Triage completed. ap3 11:35 Arm band placed on right wrist. ap3 11:35 Patient has correct armband on for positive identification. Bed in low position. Call ap3 light in reach. Adult w/ patient. Pulse ox on. NIBP on. 12:04 XRAY Chest (1 view) In Process Unspecified. EDMS 12:05 Missed attempt(s): 22 gauge in right antecubital area. Bleeding controlled, band aid db applied, catheter tip intact. 12:20 Inserted saline lock: 20 gauge in left antecubital area, using aseptic technique. nj1 ,using aseptic technique. Ultrasound guided. Catheter tip well visualized within vasculature during placement. 13:26 Murtaza Dawson MD is Hospitalizing Provider. rt 15:30 Provided Education on: ADMISSION. db 15:30 No provider procedures requiring assistance completed. Patient admitted, IV remains in db place. Administered Medications: 13:57 Drug: Furosemide IVP 40 mg IVP once; give over 2 minutes Route: IVP; Site: left db antecubital; 15:30 Follow up: Response: No adverse reaction db Medication: 15:30 VIS not applicable for this client. db Outcome: 13:29 Decision to Hospitalize by Provider. rt 15:30 Admitted to Med/surg accompanied by tech, via stretcher, with chart, db 15:30 Condition: stable 15:30 Instructed on the need for admit, 16:02 Patient left the ED. ld1 Signatures: Dispatcher [employer] EDMS Chanelle Martinez RN RN ap3 Tasia Mejia RN RN ld1 Marley Oviedo RN RN db Serjio Jones MD MD rt Donna Urbina RN RN nj1 Laura Christiansen mg5
--- NOTE | 2023-06-12 13:29 | EDPHYS ---
Physician Documentation [facility] Name: Alix Acosta Age: 67 yrs Sex: Female : 1955 Arrival Date: 06/12/2023 Time: 11:16 Bed 16 Private MD: ED Physician Serjio Jones HPI: 06/12 11:41 This 67 yrs old Female presents to ER via Ambulatory with complaints of High Blood rt Pressure, Cough, Fever. 11:41 Patient presents to the ED with cough, congestion for 1 week. Symptoms have been rt progressively worsening. Denies dyspnea, chest pain. Denies other acute complaints, symptoms are mild in severity, no other aggravating or alleviating factors.. 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 - Social history:: Smoking status: Patient denies any tobacco usage or history of. - Family history:: not pertinent. ROS: 11:41 Constitutional: Negative for fever, chills, and weight loss, Abdomen/GI: Negative for rt abdominal pain, nausea, vomiting, diarrhea, and constipation, MS/Extremity: Negative for injury and deformity, Skin: Negative for injury, rash, and discoloration, Neuro: Negative for headache, weakness, numbness, tingling, and seizure, Psych: Negative for depression, anxiety, suicide ideation, homicidal ideation, and hallucinations, 11:41 ENT: Positive for rhinorrhea, sinus congestion, 11:41 Respiratory: Positive for cough, Negative for shortness of breath, Exam: 11:41 Constitutional: This is a well developed, well nourished patient who is awake, alert, rt and in no acute distress. Head/Face: Normocephalic, atraumatic. Chest/axilla: Normal chest wall appearance and motion. Nontender with no deformity. No lesions are appreciated. Cardiovascular: Regular rate and rhythm with a normal S1 and S2. No gallops, murmurs, or rubs. Normal PMI, no JVD. No pulse deficits. Abdomen/GI: Soft, non-tender, with normal bowel sounds. No distension or tympany. No guarding or rebound. No evidence of tenderness throughout. Skin: Warm, dry with normal turgor. Normal color with no rashes, no lesions, and no evidence of cellulitis. MS/ Extremity: Pulses equal, no cyanosis. Neurovascular intact. Full, normal range of motion. Neuro: Awake and alert, GCS 15, oriented to person, place, time, and situation. Cranial nerves II-XII grossly intact. Motor strength 5/5 in all extremities. Sensory grossly intact. Cerebellar exam normal. Normal gait. Psych: Awake, alert, with orientation to person, place and time. Behavior, mood, and affect are within normal limits. 11:41 Respiratory: faint crackles heard at the lung bases, no respiratory distress, 12:23 ECG was reviewed by the Attending Physician. rt Vital Signs: 11:31 BP 102 / 65; Pulse 113; Resp 19; Temp 98.7; Pulse Ox 97% ; Weight 65.77 kg; Height 5 ap3 ft. 8 in. ; 13:30 BP 104 / 92; Pulse 110; Resp 16; Pulse Ox 95% on R/A; db 14:30 BP 100 / 77; Pulse 110; Resp 16; Pulse Ox 100% on R/A; db 15:00 BP 107 / 76; Pulse 110; Resp 18; Temp 98.7; Pulse Ox 95% on R/A; db 11:31 Body Mass Index 22.05 (65.77 kg, 172.72 cm) ap3 MDM: 11:33 Patient medically screened. rt 13:31 Differential diagnosis: CHF, pneumonia, pneumothorax, viral syndrome, flu, COVID. Data rt reviewed: vital signs, nurses notes, lab test result(s), EKG, radiologic studies. Consideration of Admission/Observation Patient was admitted/placed on observation. Management of patient was discussed with the following: Hospitalist: Agrees to admit. I considered the following discharge prescriptions or medication management in the emergency department Medications were administered in the Emergency Department. See MAR. Independent interpretation of the following test(s) in the Emergency Department X-Ray: My interpretation is Pulmonary edema seen on interpretation of x-ray images. Test considered but Not performed: CT: Low suspicion for PE, CT angiogram not indicated. Care significantly affected by the following chronic conditions: A-fib. Counseling: I had a detailed discussion with the patient and/or guardian regarding the historical points, exam findings, and any diagnostic results supporting the discharge/admit diagnosis, lab results, radiology results, the need for further work-up and treatment in the hospital. Response to treatment: the patient's symptoms have mildly improved after treatment. 06/12 11:39 Order name: Basic Metabolic Panel; Complete Time: 13:06 rt 06/12 11:39 Order name: CBC with Diff; Complete Time: 15:23 rt 06/12 11:39 Order name: LFT's; Complete Time: 13:06 rt 06/12 11:39 Order name: Magnesium; Complete Time: 13:06 rt 06/12 11:39 Order name: NT PRO-BNP; Complete Time: 13:06 rt 06/12 11:39 Order name: Troponin HS; Complete Time: 13:06 rt 06/12 11:39 Order name: Influenza Screen (a \T\ B); Complete Time: 13:06 rt 06/12 11:39 Order name: SARS RAPID; Complete Time: 13:06 rt 06/12 14:01 Order name: RSV; Complete Time: 14:36 la1 06/12 15:22 Order name: Manual Differential; Complete Time: 15:23 EDMS 06/12 11:39 Order name: XRAY Chest (1 view); Complete Time: 12:11 rt 06/12 14:05 Order name: Thorax Wo Con; Complete Time: 14:36 EDMS 06/12 11:39 Order name: EKG; Complete Time: 11:40 rt 06/12 11:39 Order name: Cardiac monitoring; Complete Time: 12:23 rt 06/12 11:39 Order name: EKG - Nurse/Tech; Complete Time: 12:23 rt 06/12 11:39 Order name: IV Saline Lock; Complete Time: 12:23 rt 06/12 11:39 Order name: Labs collected and sent; Complete Time: 12:23 rt 06/12 11:39 Order name: O2 Per Protocol; Complete Time: 11:54 rt 06/12 11:39 Order name: O2 Sat Monitoring; Complete Time: 11:54 rt EC:23 Rate is 111 beats/min. Rhythm is regular, Sinus tachycardia with No ectopy. QRS [place] is rt Normal. NM interval is normal. QRS interval is normal. QT interval is normal. No Q waves. Clinical impression: NSR w/ Non-specific ST/T Changes. Administered Medications: 13:57 Drug: Furosemide IVP 40 mg IVP once; give over 2 minutes Route: IVP; Site: left db antecubital; 15:30 Follow up: Response: No adverse reaction db Disposition Summary: 06/12/23 13:29 Hospitalization Ordered Notes: Hospitalization Status: Observation rt Provider: Murtaza Dawson rt Location: Telemetry/MedSurg (observation) rt Condition: Stable rt Problem: new rt Symptoms: are unchanged rt Bed/Room Type: Standard rt Room Assignment: 222(06/12/23 14:15) bd Diagnosis - Pulmonary edema rt Forms: - Medication Reconciliation Form rt - SBAR form rt - Leadership Thank You Letter rt Signatures: Dispatcher [employer] Mirian Cramer Amanda RN RN ap3 Marley Oviedo RN RN db Serjio Jones MD MD rt Corrections: (The following items were deleted from the chart) 14:15 13:29 rt bd
[2023-06-12] MEDS ORDERED: FUROSEMIDE 40 MG/4 ML VIAL ONE (13:41)
--- NOTE | 2023-06-12 14:34 | RAD REPORT ---
EXAM DESCRIPTION: CT - Thorax Wo Con CLINICAL HISTORY: Chest pain Fever, cough, dyspnea, edema vs pneumonia COMPARISON: Chest Single View dated 06/12/2023 FINDINGS: Ground-glass and alveolar lung opacities are present bilaterally, greater on the right in the right upper lobe. This most likely is infectious in etiology. Trace right pleural effusion. No pn eumothorax. Cardiac size is mildly to moderately enlarged. No axillary, mediastinal or hilar adenopathy. Impacted, healing fracture proximal left humerus. Multiple stones are present in the right kidney col lecting system. All CT scans are performed using dose optimization technique as appropriate and may include automated exposure control or mA/KV adjustment according to patient size. IMPRESSION: Ground-glass and alveolar opacities are present bilaterally, greatest in the right upper lobe, likely related to infection.
--- NOTE | 2023-06-12 14:49 | P.HP ---
Certification for Inpatient Patient admitted to: Inpatient Patient will require the following post-hospital care: None Practitioner: I am a practitioner with admitting privileges, knowledge of patient current condition, hospital course, and medical plan of care. Services: Services provided to patient in accordance with Admission requirements found in Title 42 Section 412.3 of the Code of Federal Regulations Patient History Date of Service: 06/12/23 Reason for admission: Pneumonia History of Present Illness: 67-year-old female with a history of Apert syndrome, hypertension, previously with atrial fibrillation presents the emergency department chief complaint of cough, fevers. She reports productive cough with clear sputum for the last 1 week along with fevers Tmax 102. Also reports sick contacts with her , sister. She was evaluated in the emergency department, labs were significant for white blood cell 3.7 hemoglobin 11.1 hematocrit 31.7 platelet count 142 creatinine 1.03 GFR 60 BNP 2621 influenza, COVID, RSV test negative chest x-ray showed diffuse prominence of pulmonary tissue likely reflecting pulmonary edema. Multifocal pneumonia less likely. Subsequent CT of the chest without contrast was performed which revealed groundglass and alveolar opacities present bilaterally greatest in the right upper lobe likely related to infection. Patient will be admitted for further management of bilateral pneumonia, dyspnea, cough. Allergies codeine Adverse Reaction (Verified 12/08/21 21:04) Nausea/Vomiting Home Medications: Aspirin [Aspirin EC 81 MG] 81 mg PO DAILY 12/09/21 Digoxin [Lanoxin] 0.125 mg PO DAILY 12/09/21 Metoprolol Succinate [Toprol Xl] 50 mg PO BID 12/09/21 - Past Medical/Surgical History Diabetic: No -: Afib -: Congenital brain deformity -: Nephrolithiasis -: Apert syndrome -: HTN -: Craniotomy with plastic surgery Psychosocial/ Personal History: Lives with family - Family History Mother -: Heart disease - Social History Smoking Status: Never smoker Alcohol use: No CD- Drugs: No Caffeine use: Yes Place of Residence: Home Review of Systems 10-point ROS is otherwise unremarkable General: Fever, Chills Respiratory: Cough, Shortness of Breath, Sputum, Wheezing Physical Examination - Physical Exam General: Alert, In no apparent distress, Oriented x3 HEENT: Atraumatic, PERRLA, Mucous membr. moist/pink Neck: Supple, 2+ carotid pulse no bruit, No LAD Respiratory: Diminished Cardiovascular: Regular rate/rhythm, Normal S1 S2 Gastrointestinal: Normal bowel sounds, No tenderness Musculoskeletal: No tenderness Integumentary: No rashes Neurological: Normal speech, Normal strength at 5/5 x4 extr, Normal tone, Normal affect - Studies Laboratory Data (last 24 hrs) 06/12/23 06/12/23 12:40 12:03 WBC 3.70 L Hgb 11.1 L Hct 31.7 L Plt Count 142 L Sodium 139 Potassium 3.6 BUN 14 Creatinine 1.03 H Glucose 120 H Magnesium 2.0 Total Bilirubin 0.5 AST 37 ALT 29 Alkaline Phosphatase 77 Microbiology Data (last 24 hrs): 06/12/23 11:55 Nasopharnyx Influenza Type A Antigen Screen - Final 06/12/23 11:55 Nasopharnyx Influenza Type B Antigen Screen - Final Assessment and Plan - Plan Assessment: Dyspnea secondary to bilateral community-acquired pneumonia Hypertension Apert syndrome History of atrial fibrillation Plan: Dyspnea secondary to bilateral community-acquired pneumonia Continue abx with rocephin/zithromax Monitor oxygen saturation overnight negative for covid/flu/rsv Hypertension Metoprolol and amlodipine continue Apert syndrome Noted History of atrial fibrillation Reports resolved, currently NSR, continue metoprolol, asa DVT PPX: Lovenox Code status: Full Discharge Plan: Home Plan to discharge in: 24 Hours - Advance Directives Does patient have a Living Will: No Does patient have a Durable POA for Healthcare: No - Code Status/Comfort Care Code Status Assessed: Yes (Full code) Critical Care: No Time Spent Managing Pts Care (In Minutes): 55
[2023-06-12 15:22] LABS: Blood Morphology Comment NOT SEEN (NOT SEEN); Platelet Estimate DECR
[2023-06-12] MEDS ORDERED: ALBUTEROL 2.5 MG/3 ML NEB SOL NEB PRN (16:32)
[2023-06-12] MEDS ORDERED: ACETAMINOPHEN 500 MG TAB PO PRN (16:32)
[2023-06-12] MEDS ORDERED: ONDANSETRON 4 MG/2 ML VIAL IV PRN (16:32)
[2023-06-12] MEDS ORDERED: AZITHROMYCIN 500 MG INJ IVPB ONE (16:56)
[2023-06-12] MEDS ORDERED: NA CHLORIDE 0.9% 250 ML ONE (16:57)
[2023-06-12] MEDS: METOPROLOL TAR 25 MG TAB PO SCH (17:15)
[2023-06-12] MEDS: CEFTRIAXONE 1,000 MG in NA CHLORIDE 0.9% 50 ML IVPB SCH (17:15)
[2023-06-12] MEDS: ENOXAPARIN 40 MG/0.4 ML SQ SCH (17:16)
[2023-06-12] MEDS: AZITHROMYCIN IV 500 MG in NA CHLORIDE 0.9% 250 ML IVPB SCH (17:18)
[2023-06-12] MEDS: BENZONATATE 100 MG CAP PO PRN (23:25)
[2023-06-13 02:35] LABS: Absolute Lymphocytes (CBC) 1.5 K/uL (0.7-4.9); Hematocrit 29.4 % (36.0-45.0); Lymphocytes % 38.4 % (15.3-44.8); MCV 85.5 fL (80-100); MPV 8.6 fL (7.6-11.3); Platelets 144 thou/uL (152-406); RBC Red Blood Cell Count 3.44 M/uL (3.86-4.86)
[2023-06-13 02:58] LABS: Potassium 3.3 mEq/L (3.5-5.1); Thyroid Stimulating Hormone 0.492 uIU/mL (0.358-3.740)
[2023-06-13] MEDS: METOPROLOL TAR 25 MG TAB PO SCH (05:25)
[2023-06-13] MEDS ORDERED: AZITHROMYCIN 500 MG INJ IVPB ONE (07:40)
[2023-06-13] MEDS ORDERED: NA CHLORIDE 0.9% 250 ML ONE (07:41)
[2023-06-13] MEDS: ASPIRIN EC 81 MG TAB PO SCH (08:15)
[2023-06-13] MEDS: ENOXAPARIN 40 MG/0.4 ML SQ SCH (08:15)
[2023-06-13] MEDS: AMLODIPINE 10 MG TAB PO SCH (08:16)
[2023-06-13] MEDS: CEFTRIAXONE 1,000 MG in NA CHLORIDE 0.9% 50 ML IVPB SCH (08:16)
[2023-06-13] MEDS: AZITHROMYCIN IV 500 MG in NA CHLORIDE 0.9% 250 ML IVPB SCH (08:31)
[2023-06-13] MEDS: BENZONATATE 100 MG CAP PO PRN ×2 (08:35→21:06)
[2023-06-13] MEDS ORDERED: POTASSIUM CL SA 10 MEQ TAB PO ONE (09:00)
--- NOTE | 2023-06-13 12:53 | EKG ---
Test Date: 2023-06-12 Test Time: 12:13:04 Nuclear Control Room Operator: CHETNA MEASUREMENT RESULTS: Intervals: Rate: 111 VA: 150 QRSD: 92 QT: 328 QTc: 446 [place]: P: 118 VA: 150 QRS: 91 T: 47 INTERPRETIVE STATEMENTS: Suspect arm lead reversal, interpretation assumes no reversal Sinus tachycardia Nonspecific T wave abnormality Abnormal ECG Compared to ECG 12/09/2021 14:57:55 T-wave abnormality now present Atrial fibrillation no longer present Incomplete right bundle-branch block no longer present ST (T wave) deviation no longer present Electronically Signed On 06-13-23 12:49:50 SCARF GLUER by Jonatan Mac
[2023-06-13] MEDS: guaiFENesin 100 MG/5 ML UCUP PO PRN ×2 (13:35→21:06)
[2023-06-13] MEDS ORDERED: NA CHLORIDE 0.9% 1,000 ML IV ONE (14:00)
[2023-06-13] MEDS: NA CHLORIDE 0.9% 1,000 ML IV SCH (15:59)
--- NOTE | 2023-06-13 16:09 | P.PN ---
Date of Service: 06/13/23 Subjective: Persistent cough worsening tachycardia ROS: 10 point ROS as noted above, otherwise negative Physical exam GEN: Alert, oriented, NAD HEENT: Normal conjunctiva, sclera anicteric CV: Regular rate and rhythm, no edema Pulm: Nonlabored respirations on room air ABD: Soft, nontender, nondistended MSK: No joint tenderness Integumentary: No rashes Neuro: Normal speech, normal affect Vitals reviewed Problem List Assessment: Dyspnea secondary to bilateral community-acquired pneumonia Hypertension Apert syndrome History of atrial fibrillation Plan: Dyspnea secondary to bilateral community-acquired pneumonia Continue abx with rocephin/zithromax Worsening cough and tachycardia today Added tele, repeat EKG Soft blood pressures, given IVF Hypertension Metoprolol and amlodipine continue Apert syndrome Noted History of atrial fibrillation was in NSR, now more tachycardic 130s, repeat ekg ordered, will follow up VTE: Lovenox Code: Full Dispo: 1-2 days Time Spent Managing Pts Care (In Minutes): 35 <Marlo Hanson - Last Filed: 06/13/23 16:07> Patient seen and examined on rounds. Plan of care discussed with CUSTOMER SERVICE REP Valentin and agree as noted above. tachycardic through day, ekg obtained and consistent with afib <Murtaza Dawson - Last Filed: 06/13/23 21:30>
[2023-06-13] MEDS ORDERED: METOPROLOL TARTRATE 5 MG/5 ML INJ IV STA (17:02)
[2023-06-13] MEDS: METOPROLOL XL 25 MG TAB PO SCH (17:13)
[2023-06-13] MEDS: DOXYCYCLINE 100 MG in NA CHLORIDE 0.9% 100 ML IVPB SCH (21:05)
[2023-06-13] MEDS: ENOXAPARIN 80 MG/0.8 ML SQ SCH (21:06)
[2023-06-14] MEDS ORDERED: METOPROLOL TARTRATE 5 MG/5 ML INJ IV STA (00:06)
[2023-06-14] MEDS ORDERED: ALBUMIN HUMAN 25% 100 ML IV ONE (00:06)
[2023-06-14 02:54] LABS: Absolute Lymphocytes (CBC) 1.5 K/uL (0.7-4.9); Hematocrit 26.7 % (36.0-45.0); Lymphocytes % 25.8 % (15.3-44.8); MCV 85.8 fL (80-100); MPV 8.7 fL (7.6-11.3); Platelets 163 thou/uL (152-406); RBC Red Blood Cell Count 3.12 M/uL (3.86-4.86)
[2023-06-14 03:01] LABS: Magnesium 1.7 mg/dL (1.6-2.4); Potassium 3.6 mEq/L (3.5-5.1)
[2023-06-14] MEDS: guaiFENesin 100 MG/5 ML UCUP PO PRN ×3 (03:22→19:45)
[2023-06-14] MEDS: NA CHLORIDE 0.9% 1,000 ML IV SCH ×3 (03:22→16:17)
[2023-06-14] MEDS: METOPROLOL XL 25 MG TAB PO SCH ×2 (06:07→18:17)
[2023-06-14] MEDS ORDERED: NA CHLORIDE 0.9% 500 ML IV ONE ×2 (08:44→15:34)
[2023-06-14] MEDS: AMLODIPINE 10 MG TAB PO SCH (09:00)
[2023-06-14] MEDS ORDERED: POTASSIUM CL SA 10 MEQ TAB PO ONE (09:00)
--- NOTE | 2023-06-14 09:06 | P.PN ---
Date of Service: 06/14/23 Subjective: Persistent cough worsening tachycardia ROS: 10 point ROS as noted above, otherwise negative Physical exam GEN: Alert, oriented, NAD HEENT: Normal conjunctiva, sclera anicteric CV: Regular rate and rhythm, no edema Pulm: Nonlabored respirations on room air ABD: Soft, nontender, nondistended MSK: No joint tenderness Integumentary: No rashes Neuro: Normal speech, normal affect Vitals reviewed Problem List Assessment: Dyspnea secondary to bilateral community-acquired pneumonia Concern for atrial fibrillation with RVR vs sinus tach with PACS - hx of afib Hypertension Apert syndrome Plan: Dyspnea secondary to bilateral community-acquired pneumonia Concern for atrial fibrillation with RVR vs sinus tach with PACS- hx of afib Continue abx with rocephin, zithromax changed to doxycycline given prolonged QT Zofran discontinued Worsening tachycardia, cardiology consulted EKG with Afib Vs sinus tach with frequent PVC Not responding to metoprolol, await recs from cardiology Will obtain CT PE protocol and trail bolus IVF in case underlying rhythm is sinus tach CHADS VASc score 3- continue lovenox Hypertension Metoprolol and amlodipine continue Apert syndrome Noted VTE: Lovenox Code: Full Dispo: 1-2 days Time Spent Managing Pts Care (In Minutes): 35
[2023-06-14] MEDS ORDERED: ADENOSINE 6 MG/ 2ML VIAL IV ONE (09:40)
--- NOTE | 2023-06-14 10:37 | P.PN ---
Subjective Date of Service: 06/14/23 Chief Complaint: Pneumonia, tachyarrhythmia with prolonged QT Subjective: Other (increased tachycardia) Review of Systems 10-point ROS is otherwise unremarkable Respiratory: Cough, SOB with Excertion Cardiovascular: Other (history of afib) Gastrointestinal: Nausea, Unremarkable Genitourinary: Unremarkable Musculoskeletal: Unremarkable Integumentary: Unremarkable Neurological: Other (headache) Physical Examination - Vital Signs Temperature: 99.5 F Blood Pressure: 104/59 Pulse: 130 Respirations: 16 Pulse Ox (%): 93 - Physical Exam General: Alert, In no apparent distress, Oriented x3 HEENT: Atraumatic, Normocephalic, Other (Exop 2nd to Aperts Syndrome) Neck: Supple, 2+ carotid pulse no bruit Respiratory: Diminished, Rhonchi/gurgles, Other (dry cough) Cardiovascular: No edema, Other (tachycardia) Capillary refill: <2 Seconds Gastrointestinal: Normal bowel sounds, Soft and benign Musculoskeletal: No clubbing Integumentary: No rashes Neurological: Normal speech, Normal tone Lymphatics: No axilla or inguinal lymphadenopathy External genitalia: Deferred Rectal: Deferred Assessment And Plan - Current Problems (Diagnosis) (1) Rapid atrial fibrillation Current Visit: No Status: Acute Plan: Initial EKG in ED showed a tachyarrhythmia. Difficult to distinguish a. fib vs sinus tach with frequent PACs. Adenocard 12mg rapid IVP given to slow rate enough to distinguish. + p waves visible best in V leads (V1). Continue stepped IV boluses, CT for PE pending.
--- NOTE | 2023-06-14 10:42 | P.CNS ---
Date of Consult: 06/13/23 Reason for Consult: a fib with RVR Chief Complaint: cough, fever History of Present Illness: Ms. Gretchen Acosta is a 67 yo with a history of atrial fibrillation, Mitral valve repair, Maze procedure, HTN, Apert's syndrome. She presented to the Emergency department with cough, congestion, fever. She was found to have pneumonia. She was noted to have a tachyarrhythmia with prolonged QT. She denies chest pain or palpitations. Allergies codeine Adverse Reaction (Verified 12/08/21 21:04) Nausea/Vomiting Home medications list reviewed: Yes Home Medications: Aspirin [Aspirin EC 81 MG] 81 mg PO DAILY 12/09/21 Metoprolol Succinate [Toprol Xl] 50 mg PO BID 12/09/21 Amlodipine [Norvasc] 5 mg PO DAILY 06/12/23 Magnesium Oxide [Magnesium] 250 mg PO DAILY 06/12/23 - Past Medical/Surgical History Diabetic: No -: Afib -: Congenital brain deformity -: Nephrolithiasis -: Apert syndrome -: HTN -: Craniotomy with plastic surgery Psychosocial/ Personal History: Lives with family - Family History Mother Medical History: Heart disease - Social History Smoking Status: Never smoker Alcohol use: No CD- Drugs: No Caffeine use: Yes Place of Residence: Home Review of Systems 10-point ROS is otherwise unremarkable General: Fever, Weakness, Malaise Respiratory: Cough, Other (congestion), As per HPI Cardiovascular: As per HPI Gastrointestinal: Nausea Genitourinary: As per HPI Neurological: Other (headache) Physical Examination Temp Pulse Resp BP Pulse Ox 99.5 F 130 H 16 104/59 L 93 06/14/23 10:37 06/14/23 10:37 06/14/23 10:37 06/14/23 10:37 06/14/23 10:37 General: In no apparent distress, Oriented x3 HEENT: Atraumatic, Normocephalic, Other (exopthalmos) Neck: Supple, 2+ carotid pulse no bruit, JVD not distended Respiratory: Rhonchi/gurgles, Other (dry cough) Cardiovascular: No edema, Other (tachycardia 120-140) Capillary refill: <2 Seconds Gastrointestinal: Normal bowel sounds, Soft and benign Musculoskeletal: Other (deformities to hands) Integumentary: No rashes Neurological: Normal speech, Normal tone Lymphatics: No axilla or inguinal lymphadenopathy Rectal: Deferred - Problems (1) Rapid atrial fibrillation Current Visit: No Status: Acute Plan: Initial EKG in ED showed a tachyarrhythmia. Difficult to distinguish a. fib vs sinus tach with frequent PACs. Adenocard 12mg rapid IVP given to slow rate enough to distinguish. + p waves visible best in V leads (V1). Continue stepped IV boluses, CT for PE pending. Hold QT prolonging drugs (2) Hypertension Current Visit: Yes Status: Acute Plan: Continue Metoprolol 50mg po BID, Amlodipine 10mg po daily (hold for SBP < 140 (3) Acute CHF Current Visit: No Status: Acute Plan: ECHO 12/09/2021 MEASUREMENTS (cm) DIASTOLIC (NORMALS) SYSTOLIC (NORMALS) IVSd 0.8 (0.6-1.2) LA Diam 4.8 (1.9-4.0) LVEF 54% LVIDd 5.5 (3.5-5.7) LVIDs 3.9 (2.0-3.5) %FS 28% LVPWd 0.9 (0.6-1.2) Ao Diam 2.7 (2.0-3.7) 2 DIMENSIONAL ASSESSMENT: RIGHT ATRIUM: NORMAL LEFT ATRIUM: DILATED RIGHT VENTRICLE: NORMAL LEFT VENTRICLE: NORMAL TRICUSPID VALVE: NORMAL MITRAL VALVE: NORMAL PULMONIC VALVE: NORMAL AORTIC VALVE: NORMAL PERICARDIAL EFFUSION: NONE AORTIC ROOT: NORMAL Monitor and replenish electrolytes.
[2023-06-14] MEDS: DOXYCYCLINE 100 MG in NA CHLORIDE 0.9% 100 ML IVPB SCH ×2 (10:46→20:23)
[2023-06-14] MEDS: CEFTRIAXONE 1,000 MG in NA CHLORIDE 0.9% 50 ML IVPB SCH (10:48)
[2023-06-14] MEDS: ENOXAPARIN 80 MG/0.8 ML SQ SCH ×2 (10:59→20:22)
[2023-06-14] MEDS: ASPIRIN EC 81 MG TAB PO SCH (10:59)
--- NOTE | 2023-06-14 12:35 | RAD REPORT ---
EXAM DESCRIPTION: CT - Chest For Pe Angio - 06/14/2023 12:07 pm CLINICAL HISTORY: Shortness of breath COMPARISON: June 12, 2023 TECHNIQUE: Dynamically enhanced axial 3 mm thick images of the chest were obtained during administra tion of 100 mL Isovue 370 IV contrast. Coronal and oblique reconstruction images were generated and r eviewed. Exam utilizes a protocol for optimal evaluation of pulmonary arterial tree. Maximum intensity projections 3D imaging was utilized All CT scans are performed using dose optimization technique as appropriate and may include automated exposure control or mA/KV adjustment according to patient size. FINDINGS: A pulmonary embolus is not seen. A thoracic aortic aneurysm is not noted. Small bilateral pleural effusions. Cardiomegaly. A pericardial effusion is not seen. Moderate ground-glass opacities right lung. Mild ground-glass opacities left lung Most inferior slice demonstrates right renal calculus with probable hydronephrosis IMPRESSION: Negative for a pulmonary embolism. Moderate right and mild left ground-glass opacities may indicate pulmonary edema, infection or inflam mation
[2023-06-14] MEDS ORDERED: DIGOXIN 0.25 MG/ML AMP IV ONE (15:34)
[2023-06-14] MEDS ORDERED: AMIODARONE HCL 150 MG in D5W 100 ML IV STA (15:35)
[2023-06-14] MEDS ORDERED: AMIODARONE HCL 900 MG in Dextrose 5%-Water 482 ML IV SCH (15:36)
[2023-06-15] MEDS: BENZONATATE 100 MG CAP PO PRN ×2 (02:10→20:30)
[2023-06-15] MEDS: NA CHLORIDE 0.9% 1,000 ML IV SCH (03:20)
[2023-06-15 03:58] LABS: Absolute Lymphocytes (CBC) 1.4 K/uL (0.7-4.9); Hematocrit 27.8 % (36.0-45.0); MPV 8.7 fL (7.6-11.3); Platelets 196 thou/uL (152-406); RBC Red Blood Cell Count 3.23 M/uL (3.86-4.86)
[2023-06-15 04:15] LABS: Magnesium 1.8 mg/dL (1.6-2.4); Potassium 3.9 mEq/L (3.5-5.1)
[2023-06-15] MEDS: METOPROLOL XL 25 MG TAB PO SCH ×2 (05:15→18:33)
[2023-06-15] MEDS ORDERED: POTASSIUM 25 MEQ EFFERV TAB PO ONE (06:00)
[2023-06-15] MEDS ORDERED: GUAIFENESIN/CODEINE 5ML UCUP PO PRN (07:54)
[2023-06-15] MEDS ORDERED: HYDROCODONE/CHLORPHEN 5 ML/OSYR ONE ×2 (08:16→20:27)
[2023-06-15] MEDS ORDERED: ASPIRIN EC 81 MG TAB PO ONE (08:17)
[2023-06-15] MEDS: ENOXAPARIN 80 MG/0.8 ML SQ SCH ×2 (08:20→20:30)
[2023-06-15] MEDS: HYDROCODONE/CHLORPHEN 5 ML/OSYR PO PRN ×2 (08:20→20:30)
[2023-06-15] MEDS: ASPIRIN EC 81 MG TAB PO SCH (08:20)
[2023-06-15] MEDS: CEFTRIAXONE 1,000 MG in NA CHLORIDE 0.9% 50 ML IVPB SCH (08:21)
[2023-06-15] MEDS: DOXYCYCLINE 100 MG in NA CHLORIDE 0.9% 100 ML IVPB SCH ×2 (08:21→20:29)
[2023-06-15] MEDS ORDERED: AMIODARONE HCL 900 MG in Dextrose 5%-Water 482 ML IV SCH (09:00)
--- NOTE | 2023-06-15 09:38 | P.PN ---
Subjective Date of Service: 06/15/23 Chief Complaint: cough, fever Subjective: Other (worsening cough) Review of Systems 10-point ROS is otherwise unremarkable Eyes: As per HPI Respiratory: As per HPI Cardiovascular: As per HPI Physical Examination - Vital Signs Temperature: 97.8 F Blood Pressure: 118/80 Pulse: 103 Respirations: 24 Pulse Ox (%): 95 - Physical Exam General: Alert, Oriented x3 HEENT: Atraumatic, Normocephalic Neck: Supple, 2+ carotid pulse no bruit Respiratory: Expiratory wheezes, Inspiratory wheezes, Other (paroxysmal cough) Cardiovascular: No edema, Irregular heart rate/rhythm Capillary refill: <2 Seconds Gastrointestinal: Normal bowel sounds, Soft and benign Musculoskeletal: No clubbing, Contractures Integumentary: No rashes Neurological: Normal speech, Normal tone Lymphatics: No axilla or inguinal lymphadenopathy External genitalia: Deferred Rectal: Deferred Assessment And Plan - Current Problems (Diagnosis) (1) Rapid atrial fibrillation Current Visit: No Status: Acute Plan: Initial EKG in ED showed a tachyarrhythmia. Difficult to distinguish a. fib vs sinus tach with frequent PACs. Adenocard 12mg rapid IVP given to slow rate enough to distinguish. + p waves visible best in V leads (V1). Continue stepped IV boluses, CT for PE pending. Hold QT prolonging drugs 06/15/23 (2) Hypertension Current Visit: Yes Status: Acute Plan: Continue Metoprolol 50mg po BID, Amlodipine 10mg po daily (hold for SBP < 140) 06/15/23 Continue metoprolol unless SBP < 105 (3) Acute CHF Current Visit: No Status: Acute Plan: ECHO 12/09/2021 MEASUREMENTS (cm) DIASTOLIC (NORMALS) SYSTOLIC (NORMALS) IVSd 0.8 (0.6-1.2) LA Diam 4.8 (1.9-4.0) LVEF 54% LVIDd 5.5 (3.5-5.7) LVIDs 3.9 (2.0-3.5) %FS 28% LVPWd 0.9 (0.6-1.2) Ao Diam 2.7 (2.0-3.7) 2 DIMENSIONAL ASSESSMENT: RIGHT ATRIUM: NORMAL LEFT ATRIUM: DILATED RIGHT VENTRICLE: NORMAL LEFT VENTRICLE: NORMAL TRICUSPID VALVE: NORMAL MITRAL VALVE: NORMAL PULMONIC VALVE: NORMAL AORTIC VALVE: NORMAL PERICARDIAL EFFUSION: NONE AORTIC ROOT: NORMAL Monitor and replenish electrolytes. 06/15/23 Monitor and replenish electrolytes
--- NOTE | 2023-06-15 15:09 | EKG ---
Test Date: 2023-06-14 Test Time: 09:54:30 Reticle Printer: JESSICA MEASUREMENT RESULTS: Intervals: Rate: 132 ME: QRSD: 94 QT: 338 QTc: 500 [place]: P: ME: QRS: 90 T: 91 INTERPRETIVE STATEMENTS: Atrial fibrillation with rapid ventricular response Rightward axis Low voltage QRS Nonspecific T wave abnormality, probably digitalis effect Abnormal ECG Compared to ECG 06/13/2023 16:48:54 Right-axis deviation now present Low QRS voltage now present T-wave abnormality now present ST (T wave) deviation no longer present Electronically Signed On 06-15-23 15:07:47 DATA WAREHOUSE CONSULTANT by Jonatan Mac
--- NOTE | 2023-06-15 15:10 | EKG ---
Test Date: 2023-06-14 Test Time: 06:32:33 Stevedoring Superintendent: SREG MEASUREMENT RESULTS: Intervals: Rate: 141 OR: QRSD: 82 QT: 346 QTc: 529 [place]: P: OR: QRS: 97 T: 3 INTERPRETIVE STATEMENTS: Atrial fibrillation with rapid ventricular response Rightward axis Low voltage QRS Nonspecific ST and T wave abnormality Abnormal ECG Compared to ECG 06/13/2023 16:48:54 Right-axis deviation now present Low QRS voltage now present ST (T wave) deviation still present Electronically Signed On 06-15-23 15:08:02 APPARATUS OPERATOR by Jonatan Mac
--- NOTE | 2023-06-15 15:12 | EKG ---
Test Date: 2023-06-13 Test Time: 16:48:54 Tooth Grinder: PAYAL MEASUREMENT RESULTS: Intervals: Rate: 144 [place]: QRSD: 96 QT: 316 QTc: 489 [place]: P: SC: QRS: 31 T: 56 INTERPRETIVE STATEMENTS: Atrial fibrillation with rapid ventricular response RSR' or QR pattern in V1 suggests right ventricular conduction delay Nonspecific ST and T wave abnormality, probably digitalis effect Abnormal ECG Compared to ECG 06/12/2023 12:13:04 RSR' in V1 or V2 now present ST (T wave) deviation now present Sinus tachycardia no longer present T-wave abnormality no longer present Electronically Signed On 06-15-23 15:09:14 HONE OPERATOR by Jonatan Mac
[2023-06-15 15:47] VITALS: BMI 22.1
[2023-06-15] MEDS ORDERED: ACETAMINOPHEN 500 MG TAB ONE (17:04)
--- NOTE | 2023-06-15 17:12 | P.PN ---
Date of Service: 06/15/23 Subjective: Persistent cough, not relieved with tessalon or robitussin tachycardia better, will continue to monitor ROS: 10 point ROS as noted above, otherwise negative Physical exam GEN: Alert, oriented, NAD HEENT: Normal conjunctiva, sclera anicteric CV: Tachycardia, no edema Pulm: Nonlabored respirations on room air, coughing ABD: Soft, nontender, nondistended MSK: No joint tenderness Integumentary: No rashes Neuro: Normal speech, normal affect Vitals reviewed Problem List Assessment: Dyspnea secondary to bilateral community-acquired pneumonia Concern for atrial fibrillation with RVR vs sinus tach with PACS - hx of afib Hypertension Apert syndrome Plan: Dyspnea secondary to bilateral community-acquired pneumonia Concern for atrial fibrillation with RVR vs sinus tach with PACS- hx of afib Continue abx with rocephin and doxycycline given prolonged QT Zofran discontinued Worsening tachycardia, cardiology consulted EKG with Afib Vs sinus tach with frequent PVC Not responding to metoprolol, await recs from cardiology CT PE protocol reports "Negative for a pulmonary embolism. Moderate right and mild left ground-glass opacities may indicate pulmonary edema, infection or inflammation." trail bolus IVF in case underlying rhythm is sinus tach CHADS VASc score 3- continue lovenox Hypertension Metoprolol and amlodipine continue Apert syndrome Noted VTE: Lovenox Code: Full Dispo: 1-2 days Time Spent Managing Pts Care (In Minutes): 35
[2023-06-15] MEDS ORDERED: AMIODARONE HCL 200 MG TAB ONE ×2 (17:29→21:35)
[2023-06-15] MEDS: AMIODARONE HCL 200 MG TAB PO SCH ×2 (17:31→21:00)
[2023-06-15] MEDS ORDERED: BENZONATATE 100 MG CAP PO ONE (20:27)
[2023-06-15] MEDS ORDERED: NA CHLORIDE 0.9% 100 ML ONE (20:55)
[2023-06-16 04:40] LABS: Absolute Lymphocytes (CBC) 1.3 K/uL (0.7-4.9); Hematocrit 27.9 % (36.0-45.0); Lymphocytes % 25.1 % (15.3-44.8); MCV 86.7 fL (80-100); MPV 8.1 fL (7.6-11.3); Platelets 221 thou/uL (152-406); RBC Red Blood Cell Count 3.22 M/uL (3.86-4.86)
[2023-06-16] MEDS: METOPROLOL XL 25 MG TAB PO SCH ×3 (06:00→17:45)
[2023-06-16] MEDS ORDERED: ENOXAPARIN 80 MG/0.8 ML SQ ONE (08:50)
[2023-06-16] MEDS ORDERED: CEFTRIAXONE 1000 MG/VIAL ONE (08:50)
[2023-06-16] MEDS ORDERED: AMIODARONE HCL 200 MG TAB ONE ×2 (08:51→20:11)
[2023-06-16] MEDS ORDERED: ASPIRIN EC 81 MG TAB PO ONE (08:51)
[2023-06-16] MEDS ORDERED: DOXYCYCLINE HYCLATE 100MG INJ ONE (08:51)
[2023-06-16] MEDS ORDERED: NA CHLORIDE 0.9% 100 ML ONE (08:52)
[2023-06-16] MEDS ORDERED: NA CHLORIDE 0.9% 50 ML ONE (08:53)
[2023-06-16] MEDS: CEFTRIAXONE 1,000 MG in NA CHLORIDE 0.9% 50 ML IVPB SCH (09:10)
[2023-06-16] MEDS: AMIODARONE HCL 200 MG TAB PO SCH ×2 (09:10→20:30)
[2023-06-16] MEDS: ENOXAPARIN 80 MG/0.8 ML SQ SCH ×2 (09:10→20:30)
[2023-06-16] MEDS: ASPIRIN EC 81 MG TAB PO SCH (09:10)
[2023-06-16] MEDS: DOXYCYCLINE 100 MG in NA CHLORIDE 0.9% 100 ML IVPB SCH ×2 (09:48→20:30)
[2023-06-16] MEDS ORDERED: guaiFENesin 100 MG/5 ML UCUP ONE ×2 (11:16→17:43)
[2023-06-16] MEDS ORDERED: BENZONATATE 100 MG CAP PO ONE ×2 (11:16→17:43)
[2023-06-16] MEDS: BENZONATATE 100 MG CAP PO PRN ×2 (11:17→17:44)
[2023-06-16] MEDS: guaiFENesin 100 MG/5 ML UCUP PO PRN ×2 (11:18→17:44)
[2023-06-16] MEDS ORDERED: HYDROCODONE/CHLORPHEN 5 ML/OSYR ONE (13:25)
--- NOTE | 2023-06-16 17:37 | P.PN ---
Date of Service: 06/16/23 Subjective: Awake and feeling better, she states her coughing has decreased Still in atrial fibrillation, HR up to 122 today. ROS: 10 point ROS as noted above, otherwise negative Physical exam GEN: Alert, oriented, NAD HEENT: Normal conjunctiva, sclera anicteric CV: Tachycardia, no edema Pulm: Nonlabored respirations on room air, coughing ABD: Soft, nontender, nondistended MSK: No joint tenderness Integumentary: No rashes Neuro: Normal speech, normal affect Vitals reviewed Problem List Assessment: Dyspnea secondary to bilateral community-acquired pneumonia Concern for atrial fibrillation with RVR vs sinus tach with PACS - hx of afib Hypertension Apert syndrome Plan: Dyspnea secondary to bilateral community-acquired pneumonia Concern for atrial fibrillation with RVR vs sinus tach with PACS- hx of afib Continue abx with rocephin and doxycycline given prolonged QT Zofran discontinued Worsening tachycardia, cardiology consulted EKG with Afib Vs sinus tach with frequent PVC Not responding to metoprolol, await recs from cardiology Amiodarone [address] PE protocol reports "Negative for a pulmonary embolism. Moderate right and mild left ground-glass opacities may indicate pulmonary edema, infection or inflammation." trail bolus IVF in case underlying rhythm is sinus tach CHADS VASc score 3- continue lovenox Hypertension Metoprolol and amlodipine continue Apert syndrome Noted VTE: Lovenox Code: Full Dispo: 1-2 days Time Spent Managing Pts Care (In Minutes): 35
[2023-06-16] MEDS ORDERED: METOPROLOL XL 50 MG TAB PO ONE (17:40)
[2023-06-17] MEDS: METOPROLOL XL 25 MG TAB PO SCH ×2 (05:25→17:11)
[2023-06-17] MEDS ORDERED: AMIODARONE HCL 200 MG TAB ONE ×2 (08:40→20:31)
[2023-06-17] MEDS ORDERED: ASPIRIN EC 81 MG TAB PO ONE (08:40)
[2023-06-17] MEDS: CEFTRIAXONE 1,000 MG in NA CHLORIDE 0.9% 50 ML IVPB SCH (08:46)
[2023-06-17] MEDS: ASPIRIN EC 81 MG TAB PO SCH (08:46)
[2023-06-17] MEDS: DOXYCYCLINE 100 MG in NA CHLORIDE 0.9% 100 ML IVPB SCH ×2 (08:46→20:00)
[2023-06-17] MEDS: ENOXAPARIN 80 MG/0.8 ML SQ SCH ×2 (08:46→20:00)
[2023-06-17] MEDS: AMIODARONE HCL 200 MG TAB PO SCH ×2 (08:46→20:32)
[2023-06-17] MEDS ORDERED: AMIODARONE HCL 150 MG in D5W 100 ML IV ONE (13:20)
--- NOTE | 2023-06-17 15:12 | P.PN ---
Date of Service: 06/17/23 Subjective: Continues in Afib, ambulated and became more tachycardic Dr. Mac recommended amio bolus and re-evaluation and possible cardioversion ROS: 10 point ROS as noted above, otherwise negative Physical exam GEN: Alert, oriented, NAD HEENT: Normal conjunctiva, sclera anicteric CV: Tachycardia, no edema Pulm: Nonlabored respirations on room air, coughing ABD: Soft, nontender, nondistended MSK: No joint tenderness Integumentary: No rashes Neuro: Normal speech, normal affect Vitals reviewed Problem List Assessment: Dyspnea secondary to bilateral community-acquired pneumonia Concern for atrial fibrillation with RVR vs sinus tach with PACS - hx of afib Hypertension Apert syndrome Plan: Dyspnea secondary to bilateral community-acquired pneumonia Concern for atrial fibrillation with RVR vs sinus tach with PACS- hx of afib Continue abx with rocephin and doxycycline given prolonged QT Zofran discontinued Worsening tachycardia, cardiology consulted EKG with Afib Vs sinus tach with frequent PVC Not responding to metoprolol, await recs from cardiology Amiodarone 200 PO BID with amio IV bolus CT PE protocol reports "Negative for a pulmonary embolism. Moderate right and mild left ground-glass opacities may indicate pulmonary edema, infection or inflammation." trail bolus IVF in case underlying rhythm is sinus tach CHADS VASc score 3- continue lovenox Hypertension Metoprolol and amlodipine continue Apert syndrome Noted VTE: Lovenox Code: Full Dispo: 1-2 days Time Spent Managing Pts Care (In Minutes): 35
[2023-06-17] MEDS ORDERED: AMIODARONE HCL 900 MG in Dextrose 5%-Water 482 ML IV SCH (15:30)
[2023-06-17] MEDS ORDERED: METOPROLOL XL 50 MG TAB PO ONE (17:04)
[2023-06-17] MEDS: BENZONATATE 100 MG CAP PO PRN (20:00)
[2023-06-17] MEDS ORDERED: HYDROCODONE/CHLORPHEN 5 ML/OSYR ONE (20:02)
[2023-06-17] MEDS ORDERED: BENZONATATE 100 MG CAP PO ONE (20:02)
[2023-06-17] MEDS ORDERED: NA CHLORIDE 0.9% 100 ML ONE (20:18)
[2023-06-18 04:12] VITALS: O2SAT 96
[2023-06-18] MEDS ORDERED: METOPROLOL XL 50 MG TAB PO ONE ×2 (05:22→05:43)
[2023-06-18] MEDS: METOPROLOL XL 25 MG TAB PO SCH (05:45)
[2023-06-18] MEDS ORDERED: AMIODARONE HCL 200 MG TAB ONE (07:29)
[2023-06-18] MEDS ORDERED: ASPIRIN EC 81 MG TAB PO ONE (07:29)
[2023-06-18] MEDS: AMIODARONE HCL 200 MG TAB PO SCH (07:32)
[2023-06-18] MEDS: ASPIRIN EC 81 MG TAB PO SCH (07:32)
[2023-06-18] MEDS: ENOXAPARIN 80 MG/0.8 ML SQ SCH (07:32)
[2023-06-18] MEDS: CEFTRIAXONE 1,000 MG in NA CHLORIDE 0.9% 50 ML IVPB SCH (09:00)
[2023-06-18] MEDS: DOXYCYCLINE 100 MG in NA CHLORIDE 0.9% 100 ML IVPB SCH (09:00)
[2023-06-18 09:27] VITALS: BP 110/77; TEMP 98.6
--- NOTE | 2023-06-18 12:09 | P.DS ---
Admission Date: 06/13/23 Discharge Date: 06/18/23 Disposition: ROUTINE DISCHARGE Discharge Condition: GOOD Reason for Admission: cough, fever Brief History of Present Illness: Diagnosis Assessment: Dyspnea secondary to bilateral community-acquired pneumonia Concern for atrial fibrillation with RVR vs sinus tach with PACS - hx of afib Hypertension Apert syndrome Hospital Course: Alix Godinez is a pleasant 67-year-old female with a past medical history significant for Apert syndrome, hypertension, previously with atrial fibrillation who was admitted to the [facility] on 06/12/2023 for pneumonia, dyspnea, cough. Alix was treated for pneumonia, on 06/13/2023 her heart rate began to increase with EKG showing A-fib with RVR. Cardiology was consulted and echo was ordered. She stated she has a history of atrial fibrillation but cannot take thinners at home because of GI bleed but she did tolerate Lovenox. Cardiology started and Amio bolus and continued with an amnio drip. Her heart rate began to trend down slowly. Metoprolol was changed from 25 mg to 50 mg to support the heart rate reduction. Her blood pressure maintained well with this increase metoprolol. She ambulated 06/17/2023 but continued to have increased heart rate in the 130s, overnight she converted in and out of normal sinus rhythm. Ambulated again today 06/18/2023 and maintained a heart rate 110 and 115. she has tolerated IV out around and transitioned well to p.o. She sees an accounts manager and will follow-up with him for further treatment of atrial fibrillation. Discharged today with doxycycline and amiodarone, with an increase to her metoprolol of 50 mg. Did not order any blood thinner due to her history of GI bleed, she will follow-up with her accounts manager/comparator operator for further anticoagulation treatment. She has been taking aspirin daily by their recommendations and can continue that at discharge. She tolerating p.o. diet, ambulating independently, urinating without problem, on room air. On 06/18/2023, Alix was was seen on morning rounds and deemed medically stable for discharge. Alix was discharged with instructions to schedule follow-up appointments with her accounts manager/comparator operator and PCP. Alix was provided prescriptions for cycling and amiodarone. The patient and family members were given the opportunity to ask questions and reported no further questions. Furthermore, all questions were answered to the best of my ability. A copy of this discharge summary will be sent to the above providers to facilitate continuity of care. Today, I personally spent 55 minutes with Alix, of which greater than 50% of the time was spent in patient education, counseling, and coordination of care as described above. Alix Gretchen 67-year-old female with past medical history Apert syndrome, hypertension, previously with atrial fibrillation presents the emergency department chief complaint of cough, fevers Vital Signs/Physical Exam: Temp Pulse Resp BP Pulse Ox 98.6 F 98 H 14 110/77 98 06/18/23 07:00 06/18/23 09:00 06/18/23 09:00 06/18/23 09:00 06/18/23 09:00 Laboratory Data at Discharge: WBC 5.10 thou/uL (4.3-10.9) 06/16/23 04:09 Hgb 9.7 g/dL (12.0-15.0) L 06/16/23 04:09 Hct 27.9 % (36.0-45.0) L 06/16/23 04:09 Plt Count 221 thou/uL (152-406) 06/16/23 04:09 Sodium 139 mEq/L (136-145) 06/16/23 04:09 Potassium 4.0 mEq/L (3.5-5.1) 06/16/23 04:09 BUN 7 mg/dL (7-18) 06/16/23 04:09 Creatinine 0.76 mg/dL (0.55-1.02) 06/16/23 04:09 Glucose 83 mg/dL (74-106) 06/16/23 04:09 Magnesium 1.8 mg/dL (1.6-2.4) 06/15/23 03:14 Total Bilirubin 0.5 mg/dL (0.2-1.0) 06/12/23 12:03 AST 37 U/L (15-37) 06/12/23 12:03 ALT 29 U/L (13-56) 06/12/23 12:03 Alkaline Phosphatase 77 U/L (45-117) 06/12/23 12:03 Home Medications: Aspirin [Aspirin EC 81 MG] 81 mg PO DAILY 12/09/21 Metoprolol Succinate [Toprol Xl*] 50 mg PO BID 12/09/21 Amlodipine [Norvasc*] 5 mg PO DAILY 06/12/23 Magnesium Oxide [Magnesium] 250 mg PO DAILY 06/12/23 Amiodarone HCl [Cordarone*] 200 mg PO BID 30 Days #60 tab 06/18/23 Doxycycline Hyclate 100 mg PO Q12H 5 Days #10 tab 06/18/23 New Medications: Amiodarone HCl [Cordarone*] 200 mg PO BID 30 Days #60 tab Doxycycline Hyclate 100 mg PO Q12H 5 Days #10 tab Physician Discharge Instructions: Physical exam GEN: Alert, oriented, NAD HEENT: Normal conjunctiva, sclera anicteric CV: Tachycardia, no edema Pulm: Nonlabored respirations on room air, coughing ABD: Soft, nontender, nondistended MSK: No joint tenderness Integumentary: No rashes Neuro: Normal speech, normal affect 1. Please call and schedule a follow-up appointment with your PCP in 3-5 days for management and follow up concerning the pneumonia - Please follow-up with your PCP for medication refills/adjustments -doxycycline twice a day for five days to complete antibiotic course 2. Please call and schedule a follow-up appointment with your comparator operator in 3- 5 days 3. continue with a heart healthy diet 4. Amiodarone 200 mg twice a day for better heart rate control 5. use caution with activity to keep heart rate controlled 6. Metoprolol changed to 50 mg twice a day for better heart rate control New Medication Amiodarone 200 mg twice a day Doxycycline 100 mg twice a day for five days Diet: AHA Activity: Ad luis Followup: Selwyn Kim DO [Primary Care Provider] - Time spent managing pt's care (in minutes): 55
--- NOTE | 2023-06-19 07:42 | ECHO ---
HEIGHT: 5 ft 8 in WEIGHT: 146 lb 0 oz DATE OF STUDY: 06/14/[address]: Marlo Hanson NP 2-DIMENSIONAL: YES M.MODE: YES DOPPLER: YES COLOR FLOW: YES TDS: PORTABLE: YES DEFINITY: BUBBLE STUDY: DIAGNOSIS: ATRIAL FIBRILLATION WITH RAPID VENTRICULAR RESPONSE CARDIAC HISTORY: CATHERIZATION: SURGERY: PROSTHETIC VALVE: PACEMAKER: MEASUREMENTS (cm) DIASTOLIC (NORMALS) SYSTOLIC (NORMALS) IVSd 0.9 (0.6-1.2) LA Diam 6.0 (1.9-4.0) LVEF 33% LVIDd 5.2 (3.5-5.7) LVIDs 4.4 (2.0-3.5) %FS 16% LVPWd 1.1 (0.6-1.2) Ao Diam 2.8 (2.0-3.7) 2 DIMENSIONAL ASSESSMENT: RIGHT ATRIUM: ENLARGED LEFT ATRIUM: SEVERELY DILATED RIGHT VENTRICLE: DEPRESSED FUNCTION LEFT VENTRICLE: DEPRESSED EJECTION FRACTION TRICUSPID VALVE: MILD TRICUSPID REGURGITATION MITRAL VALVE: MILD MITRAL REGURGITATION PULMONIC VALVE: NORMAL AORTIC VALVE: NORMAL PERICARDIAL EFFUSION: NONE AORTIC ROOT: NORMAL LEFT VENTRICULAR WALL MOTION: MODERATE GLOBAL HYPOKINESIS DOPPLER/COLOR FLOW: SEE BELOW COMMENTS: 1. MODERATELY DEPRESSED LEFT VENTRICULAR EJECTION FRACTION 30-35% 2. MODERATE GLOBAL HYPOKINESIS 3. ATRIAL FIBRILLATION 4. SEVERE LEFT ATRIAL ENLARGEMENT 5. RIGHT ATRIAL ENLARGEMENT 6. MILDLY DEPRESSED RIGHT VENTRICULAR FUNCTION 7. MILD MITRAL REGURGITATION, TRICUSPID REGURGITATION TECHNOLOGIST: RITA MAHONEY
--- NOTE | 2023-06-21 13:33 | EKG ---
Test Date: 2023-06-17 Test Time: 15:40:59 Sales Center Manager: JEANNIE MEASUREMENT RESULTS: Intervals: Rate: 99 CT: 168 QRSD: 96 QT: 382 QTc: 490 [place]: P: 105 CT: 168 QRS: 84 T: 110 INTERPRETIVE STATEMENTS: Normal sinus rhythm Nonspecific T wave abnormality Prolonged QT Abnormal ECG Compared to ECG 06/16/2023 10:04:30 Prolonged QT interval now present Atrial fibrillation no longer present T-wave abnormality still present Electronically Signed On 06-21-23 13:25:11 OPTICAL MODEL MAKER AND TESTER by Jonatan Mac
--- NOTE | 2023-06-21 13:37 | EKG ---
Test Date: 2023-06-16 Test Time: 10:04:30 Engraver [place]pperplate: [place] MEASUREMENT RESULTS: Intervals: Rate: 120 AL: QRSD: 94 QT: 276 QTc: 390 [place]: P: AL: QRS: 84 T: 120 INTERPRETIVE STATEMENTS: Atrial fibrillation Nonspecific T wave abnormality, probably digitalis effect Abnormal ECG Compared to ECG 06/14/2023 09:54:30 Right-axis deviation no longer present T-wave abnormality still present Electronically Signed On 06-21-23 13:26:31 STRUCTURAL ANALYST by Jonatan Mac
--- NOTE | 2023-06-21 13:39 | EKG ---
Test Date: 2023-06-15 Test Time: 16:54:48 Vibration Technician: RNNT MEASUREMENT RESULTS: Intervals: Rate: 110 CO: 128 QRSD: 96 QT: 354 QTc: 479 [place]: P: CO: 128 QRS: 110 T: 54 INTERPRETIVE STATEMENTS: Sinus tachycardia with premature supraventricular complexes Otherwise normal ECG Compared to ECG 06/14/2023 09:54:30 Atrial premature complex(es) now present Atrial fibrillation no longer present Right-axis deviation no longer present T-wave abnormality no longer present Electronically Signed On 06-21-23 13:27:36 HONING JOB SETTER by Jonatan Mac
== END 2023-06-18 12:30 | disposition home or self-care (01) | DRG 195 ==
LOC: ER 11:16 → ERHOLD 14:10 → 2ND 15:21 → OBSVTOIN 06-13 16:06 → 3RD-ICU 06-14 17:44
PROVIDERS: ADMIT Hospitalist; ATTEND Internal Medicine Sleep Medicine
DX: J18.9 Pneumonia, unspecified organism (principal); Q87.0 Congenital malformation syndromes predominantly affecting facial appearance; R00.0 Tachycardia, unspecified; I48.91 Unspecified atrial fibrillation; I50.9 Heart failure, unspecified; I10 Essential (primary) hypertension; Z11.52 Encounter for screening for COVID-19
CPT/HCPCS: 36415; 71045; 71250; 71275; 80048; 80076; 83735; 83880; 84132; 84439; 84443; 84484; 85025; 87804; 87807; 87811; 93005; 93306; 94640; 96374; 99285; G0378; J0153; J0282; J0696; J1160; J1650; J1940; J2405; J7030; J7040; J7050; J7060; J7613; P9047; Q9967

== ENCOUNTER 2024-09-18 13:37 | Emergency (ER) | payer MEDICARE ==
[2024-09-18 14:49] LABS: Absolute Basophils 0.1 K/uL (0-0.5); Absolute Eosinophils 0.1 K/uL (0-0.5); Absolute Lymphocytes (CBC) 1.6 K/uL (0.7-4.9); Absolute Monocytes 0.6 K/uL (0.1-1.3); Basophils % 1.1 % (0-1.3); Eosinophils % 1.7 % (0-4.4); Hematocrit 33.1 % (36.0-45.0); Hemoglobin 11.5 g/dL (12.0-15.0); Lymphocytes % 21.2 % (15.3-44.8); MCH 29.8 pg (27.0-35.0); MCHC 34.6 g/dL (32.0-36.0); MCV 85.9 fL (80-100); MPV 7.8 fL (7.6-11.3); Monocytes % 8.4 % (3.3-12.3); Neutrophils % 67.6 % (41.7-73.7); Platelets 209 thou/uL (152-406); RBC Red Blood Cell Count 3.86 M/uL (3.86-4.86); Red Cell Distribution Width 13.5 % (12.1-15.2)
--- NOTE | 2024-09-18 15:07 | RAD REPORT ---
Procedure: Chest Single View HISTORY: Cough COMPARISON: none FINDINGS: The lungs appear clear of acute infiltrate. No significant pleural effusion noted. The heart is 2022 mildly to moderately enlarged. Pacemaker leads in place. Post surgical changes involve the chest.. IMPRESSION: No acute abnormality is displayed.
[2024-09-18 15:08] LABS: Albumin 3.2 g/dL (3.4-5.0); Albumin/Globulin Ratio 0.8 (1.1-1.8); Bilirubin Direct 0.2 mg/dL (0-0.2); Bilirubin Indirect, Calculated 0.2 mg/dL (0.2-0.8); Bilirubin Total 0.4 mg/dL (0.2-1.0); Globulin 3.9 g/dL (2.3-3.5); Protein, Total 7.1 g/dL (6.4-8.2); Troponin High Sensitivity 9.2 pg/mL (<58.9)
[2024-09-18 15:14] LABS: Influenza A Ag Negative; Influenza B Ag Negative; SARS-CoV-2 Antigen Rapid Res Negative (Negative)
--- NOTE | 2024-09-18 16:17 | EDPHYS ---
Physician Documentation [facility] Name: Alix Acosta Age: 68 yrs Sex: Female : 1955 Arrival Date: 09/18/2024 Time: 13:37 Bed 25 Private MD: ED Physician Serjio Jones HPI: 09/18 17:41 This 68 yrs old Female presents to ER via Ambulatory with complaints of Flu Symptoms. rt 17:41 Patient presents to the ED with cough, congestion for about the past 8 days, states rt that he gets worse at nighttime. Denies difficulty breathing. Denies other acute complaints at this time, symptoms are moderate in severity, no other aggravating alleviating factors.. Historical: - Allergies: 13:58 Codeine; ll1 - PMHx: 13:58 Apert Syndrome; Atrial fibrillation; ll1 - PSHx: 13:58 ablation (Atrial fibrillation); pacemaker (Atrial fibrillation); ll1 - Immunization history:: Adult Immunizations up to date. - Infectious Disease History:: Denies. - Social history:: Smoking status: Patient denies any tobacco usage or history of. - Family history:: not pertinent. ROS: 17:41 Constitutional: Negative for fever, chills, and weight loss, Cardiovascular: Negative rt for chest pain, palpitations, and edema, Abdomen/GI: Negative for abdominal pain, nausea, vomiting, diarrhea, and constipation, MS/Extremity: Negative for injury and deformity, Skin: Negative for injury, rash, and discoloration, Neuro: Negative for headache, weakness, numbness, tingling, and seizure, 17:41 ENT: Positive for rhinorrhea, sinus congestion, 17:41 Respiratory: Positive for cough, Negative for shortness of breath, Exam: 17:41 Constitutional: This is a well developed, well nourished patient who is awake, alert, rt and in no acute distress. Chest/axilla: Normal chest wall appearance and motion. Nontender with no deformity. No lesions are appreciated. Cardiovascular: Regular rate and rhythm with a normal S1 and S2. No gallops, murmurs, or rubs. Normal PMI, no JVD. No pulse deficits. Respiratory: Lungs have equal breath sounds bilaterally, clear to auscultation and percussion. No rales, rhonchi or wheezes noted. No increased work of breathing, no retractions or nasal flaring. Abdomen/GI: Soft, non-tender, with normal bowel sounds. No distension or tympany. No guarding or rebound. No evidence of tenderness throughout. Skin: Warm, dry with normal turgor. Normal color with no rashes, no lesions, and no evidence of cellulitis. MS/ Extremity: Pulses equal, no cyanosis. Neurovascular intact. Full, normal range of motion. 17:41 ECG was reviewed by the Attending Physician. Vital Signs: 13:57 BP 136 / 73; Pulse 83; Resp 16; Temp 97.7; Pulse Ox 98% ; Weight 81.19 kg; Height 5 ft. ll1 8 in. ; Pain 5/10; 14:36 BP 117 / 64; Pulse 71; Resp 18; Pulse Ox 98% on R/A; db 15:30 BP 121 / 69; Pulse 70; Resp 16; Pulse Ox 99% on R/A; db 16:30 BP 120 / 67; Pulse 70; Resp 16; Pulse Ox 97% ; db 13:57 Body Mass Index 27.22 (81.19 kg, 172.72 cm) ll1 13:57 Pain Scale: Adult ll1 MDM: 13:54 Medical Screening Exam initiated rt 17:46 Differential Diagnosis Flu, COVID, pneumonia, viral syndrome, acute bronchitis. Data rt reviewed: vital signs, nurses notes, lab test result(s), EKG, radiologic studies. I considered the following discharge prescriptions or medication management in the emergency department Medications were administered in the Emergency Department. See MAR. Independent interpretation of the following test(s) in the Emergency Department X-Ray: My interpretation is No infiltrate seen on my interpretation of x-ray images. Care significantly affected by the following chronic conditions: Atrial fibrillation. Counseling: I had a detailed discussion with the patient and/or guardian regarding the historical points, exam findings, and any diagnostic results supporting the discharge/admit diagnosis, lab results, radiology results, the need for outpatient follow up, to return to the emergency department if symptoms worsen or persist or if there are any questions or concerns that arise at home. Response to treatment: the patient's symptoms have mildly improved after treatment. 09/18 14:05 Order name: Basic Metabolic Panel; Complete Time: 15:12 rt 09/18 14:05 Order name: CBC with Diff; Complete Time: 15:12 rt 09/18 14:05 Order name: LFT's; Complete Time: 15:12 rt 09/18 14:05 Order name: NT PRO-BNP; Complete Time: 15:12 rt 09/18 14:05 Order name: Troponin HS; Complete Time: 15:12 rt 09/18 14:05 Order name: COVID-19 Ag + Flu A+B Ag; Complete Time: 15:29 rt 09/18 14:05 Order name: XRAY Chest (1 view); Complete Time: 15:12 rt 09/18 14:05 Order name: EKG; Complete Time: 14:06 rt 09/18 14:05 Order name: Cardiac monitoring; Complete Time: 14:50 rt 09/18 14:05 Order name: EKG - Nurse/Tech; Complete Time: 14:50 rt 09/18 14:05 Order name: IV Saline Lock; Complete Time: 14:50 rt 09/18 14:05 Order name: Labs collected and sent; Complete Time: 14:50 rt 09/18 14:05 Order name: O2 Per Protocol; Complete Time: 14:50 rt 09/18 14:05 Order name: O2 Sat Monitoring; Complete Time: 14:50 rt EC:41 Rate is 70 beats/min. Rhythm is regular, Paced with No ectopy. GA interval is prolonged rt at 344 msec. QRS interval is normal. QT interval is normal. No Q waves. No ST changes noted. Administered Medications: No medications were administered Disposition Summary: 09/18/24 16:16 Discharge Ordered Notes: Location: Home rt Problem: new rt Symptoms: have improved rt Condition: Stable rt Diagnosis - Acute upper respiratory infection, unspecified rt Followup: rt - With: Private Physician - When: 2 - 3 days - Reason: Discharge Instructions: - Discharge Summary Sheet rt - Viral Respiratory Infection rt Forms: - Medication Reconciliation Form rt - Antibiotic Education rt - Prescription Opioid Use rt - Patient Portal Instructions rt - Leadership Thank You Letter rt Prescriptions: - Albuterol inhaler 90 mcg/actuation - inhale 2 puff INHALATION route every 4 hours as needed; 2 Each; Refills: 0, rt Product Selection Permitted - Tessalon Perles 100 mg Oral Capsule - take 1 capsule ORAL route every 8 hours As needed; 15 capsule; Refills: 0, rt Product Selection Permitted - Prednisone 20 mg Oral Tablet - take 2 tablets ORAL route once daily for 5 days; 10 tablet; Refills: 0, Product rt Selection Permitted Signatures: Dispatcher [employer] EDNeha Frankel RN RN ll1 Marley Oviedo RN RN db Serjio Jones MD MD rt Corrections: (The following items were deleted from the chart) 14: 14:06 BASIC METABOLIC PANEL+C.LAB.BRZ ordered. EDMS EDMS 14: 14:06 CBC+H.LAB.BRZ ordered. EDMS EDMS 14: 14:06 HEPATIC FUNCTION+C.LAB.BRZ ordered. EDMS EDMS 14: 14:06 PROBNP+C.LAB.BRZ ordered. EDMS EDMS 14: 14:06 Troponin High Sensitivity+C.LAB.BRZ ordered. EDMS EDMS 14: 14:06 COVID-19 Ag + Flu A+B Ag+I.LAB.BRZ ordered. EDMS EDMS
--- NOTE | 2024-09-18 16:17 | ER ---
Nurse's Notes [facility] Name: Alix Acosta Age: 68 yrs Sex: Female : 1955 Arrival Date: 09/18/2024 Time: 13:37 Bed 25 Private MD: Diagnosis: Acute upper respiratory infection, unspecified Presentation: 09/18 13:57 Chief complaint: Patient states: Cough, congestion for 8 days, worse at night. ll1 Coronavirus screen: Client denies travel out of the [place] in the last 14 days. congestion, cough unrelated to allergies, Client presents with at least one sign or symptom that may indicate coronavirus-19. Standard/surgical mask placed on the client. Ebola Screen: Patient denies travel to an Ebola-affected area in the 21 days before illness onset. Initial Sepsis Screen: Does the patient meet any 2 criteria? No. Patient's initial sepsis screen is negative. Does the patient have a suspected source of infection? No. Patient's initial sepsis screen is negative. Risk Assessment: Do you want to hurt yourself or someone else? Patient reports no desire to harm self or others. Onset of symptoms was September 10, 2024. 13:57 Method Of Arrival: Ambulatory ll1 13:57 Acuity: DONN 3 ll1 Historical: - Allergies: 13:58 Codeine; ll1 - PMHx: 13:58 Apert Syndrome; Atrial fibrillation; ll1 - PSHx: 13:58 ablation (Atrial fibrillation); pacemaker (Atrial fibrillation); ll1 - Immunization history:: Adult Immunizations up to date. - Infectious Disease History:: Denies. - Social history:: Smoking status: Patient denies any tobacco usage or history of. - Family history:: not pertinent. Screenin:44 [facility] ED Fall Risk Assessment (Adult) History of falling in the last 3 months, db including since admission No falls in past 3 months (0 pts) Confusion or Disorientation No (0 pts) Intoxicated or Sedated No (0 pts) Impaired Gait No (0 pts) Mobility Assist Device Used No (0 pt) Altered Elimination No (0 pt) Score/Fall Risk Level 0 - 2 = Low Risk Oriented to surroundings, Maintained a safe environment. Abuse screen: Denies threats or abuse. Denies injuries from another. Nutritional screening: No deficits noted. Tuberculosis screening: No symptoms or risk factors identified. Assessment: 14:35 Reassessment: Patient appears in no apparent distress at this time. Patient and/or db family updated on plan of care and expected duration. Pain level reassessed. Patient is alert, oriented x 3, equal unlabored respirations, skin warm/dry/pink. General: Appears in no apparent distress. comfortable, Behavior is calm, cooperative. Pain: Denies pain. Neuro: Level of Consciousness is awake, alert, obeys commands, Oriented to person, place, time, situation. Cardiovascular: Capillary refill < 3 seconds Rhythm is ventricular pacer. Respiratory: Airway is patent Respiratory effort is even, unlabored, Respiratory pattern is regular, symmetrical. 15:44 Reassessment: PATIENT AMBULATORY TO RESTROOM. db 16:38 Reassessment: Patient appears in no apparent distress at this time. Patient and/or db family updated on plan of care and expected duration. Pain level reassessed. Patient is alert, oriented x 3, equal unlabored respirations, skin warm/dry/pink. Vital Signs: 13:57 BP 136 / 73; Pulse 83; Resp 16; Temp 97.7; Pulse Ox 98% ; Weight 81.19 kg; Height 5 ft. ll1 8 in. ; Pain 5/10; 14:36 BP 117 / 64; Pulse 71; Resp 18; Pulse Ox 98% on R/A; db 15:30 BP 121 / 69; Pulse 70; Resp 16; Pulse Ox 99% on R/A; db 16:30 BP 120 / 67; Pulse 70; Resp 16; Pulse Ox 97% ; db 13:57 Body Mass Index 27.22 (81.19 kg, 172.72 cm) ll1 13:57 Pain Scale: Adult ll1 ED Course: 13:40 Patient arrived in ED. im 13:46 Serjio Jones MD is Attending Physician. rt 13:58 Triage completed. ll1 14:00 Arm band placed on Patient placed in an exam room, on a stretcher. ll1 14:25 Marley Oviedo, RN is Primary Nurse. db 14:30 Warm blanket given. db 14:35 COVID swab sent to lab. db 14:40 Initial lab(s) drawn, by me, sent to lab. EKG done, by ED staff, reviewed by Serjio Jones MD. Inserted saline lock: 22 gauge in right wrist, using aseptic technique. Blood collected. Flushed with 10 mL NS. 14:57 XRAY Chest (1 view) In Process Unspecified. EDMS 15:45 Patient has correct armband on for positive identification. Bed in low position. Call db light in reach. Side rails up X 1. Client placed on continuous cardiac and pulse oximetry monitoring. NIBP monitoring applied. media planner / buyer on. Pulse ox on. NIBP on. 16:38 Provided Education on: DISCHARGE AND FOLLOWUP. db 16:38 No provider procedures requiring assistance completed. IV discontinued, intact, db bleeding controlled, No redness/swelling at site. Administered Medications: No medications were administered Medication: 15:45 VIS not applicable for this client. db Outcome: 16:16 Discharge ordered by MD. rt 16:38 Discharged to home ambulatory, with family, db 16:38 Condition: stable 16:38 Discharge instructions given to patient, family, Instructed on discharge instructions, follow up and referral plans. Prescriptions given X 3, 16:39 Patient left the ED. db Signatures: Dispatcher [employer] EDMS Neha Daniel, RN RN ll1 Marley Oviedo RN RN db Serjio Jones MD MD rt Gina Lopez im Corrections: (The following items were deleted from the chart) 14:00 13:57 BP 136 / 73; Pulse 83bpm; Resp 16bpm; Pulse Ox 98%; ll1 ll1
[2024-09-18 17:03] VITALS: TEMP 97.7
[2024-09-18 17:15] VITALS: BP 120/67; O2SAT 97
--- NOTE | 2024-09-22 11:33 | EKG ---
Test Date: 2024-09-18 Test Time: 14:35:09 Cardiology Nurse Practitioner: CHETNA MEASUREMENT RESULTS: Intervals: Rate: 70 NC: 344 QRSD: 152 QT: 500 QTc: 540 [place]: P: 80 NC: 344 QRS: -71 T: 99 INTERPRETIVE STATEMENTS: Atrial-sensed ventricular-paced rhythm with prolonged AV conduction Biventricular pacemaker detected Abnormal ECG Compared to ECG 06/17/2023 15:40:59 Sinus rhythm no longer present T-wave abnormality no longer present Prolonged QT interval no longer present Electronically Signed On 09-22-24 11:23:46 CDT by Augie Rehman
== END 2024-09-18 16:39 | disposition home or self-care (01) ==
LOC: ER 13:37
DX: J06.9 Acute upper respiratory infection, unspecified (principal); I48.91 Unspecified atrial fibrillation; Z11.52 Encounter for screening for COVID-19; Z95.0 Presence of cardiac pacemaker
CPT/HCPCS: 36415; 71045; 80048; 80076; 83880; 84484; 85025; 87428; 93005; 99284